=== PATIENT | male | born 1935 | race Caucasian/White ===

== ENCOUNTER 2016-08-28 01:51 | Inpatient (IN) | payer MEDICARE, MEDICAID ==
[2016-08-28] VITALS (7 sets, daily range): BP systolic 119–154; BP diastolic 66–83; PULSE 61–71; TEMP 97.2–98
[~2016-08-28] VITALS: Ht 177.8 cm; Wt 97.7 kg
[~2016-08-28 01:51] MED LIST: ACULAR 10 ML10 ML; ACULAR OPHTHALMI5 ML OP; AMOXICILLIN 50500 MG PO; ANTIVERT 25MG25 MG PO; ANTIVERT PO; ASPIRIN 32325 MG/TAB PO; ASPIRIN E.C. 8181 MG PO; AUGMENTIN 875 M1 TAB PO; AZITHROMYCIN250 MG PO; BELLADONNA ALKALOIDS; BELLADONNA/OPIU1 SU2 RC; BENTYL 20MG20 MG/TAB PO; CARAFATE 1GM1 G PO; CARDENE 20MG CA20 M1 PO; CLEOCIN HCL300 MG PO; CLINDAMYCIN HC150 MG PO; CLINDAMYCIN HC300 MG PO; COMBIVENT INH14.7 GM IH; COZAAR 50MG50 MG/TAB PO; COZAAR100 MG PO; DONNATAL TABLET1 TAB PO; DONNATAL1 CA1 PO; DONNATAL1 CAP PO; FLONASE NASAL S16 GM NS; FLOVENT; FLOVENT 110MCG7.9 GM IH; FLOVENT 220MCG7.9 GM IH; FLOVENT DI100 MCG/Ac IH; FLOVENT0.044 MG/A IH; GI COCKTAIL; HCTZ 25MG TAB25 MG PO; IBU400 MG PO; INDOCIN 25MG CA25 MG PO; INTESTINEX1 CA1 PO; LANOXIN 0.120.125 MG PO; LANOXIN 0.25M0.25 MG PO; LASIX 20MG TABL20 MG; LEVAQUIN 5500 MG/TAB PO; LEVSIN0.125 M1 PO; LINZESS290CAP PO; LISINOPRIL5 MG PO; LOPRESSOR 225 MG/TAB PO; NASONEX SPRAY; NEOMYCIN SULFA500 MG PO; NEURONTIN100 MG/CAP PO; NORCO 325 MG-51 TAB PO; OCUFLOX OPHTH DR5 ML; PLAVIX 75MG TAB75 MG PO; PLAVIX300 MG PO; PRED FORTE 1 ML1 ML OP; PROAIR; PROAIR HFA0.09 MG/AC IH; PROAMATINE10 MG PO; REGLAN 10MG10 MG/TAB PO; SINGULAIR; TEARS NATURALE15 M1 OP; TOPROL XL 50MG50 MG PO; TRAVATAN 2.5 M2.5 M1 OU; TRAVATAN Z 2.52.5 ML OU; TRAVATAN Z 5 ML5 ML OS; TUMS500 MG PO; TYLENOL 650MG650 M2 PO; ULTRAM50 MG PO; VENTOLIN0.09 MG IH; XALATAN; XALATAN EYE DROPS OP; ZANTAC 300300 MG PO; ZOCOR 40MG40 MG PO; [UNRECOGNIZED DRUG - OTHER]
[2016-08-28 02:24] LABS: BASO # 0.1 (0.0-0.2); BASO % 0.7 % (0.0-2.0); EOS # 0.1 (0.0-0.7); EOS % 1.1 % (0-4.0); GRAN % 74.8 % (42.2-75.2); HEMATOCRIT 40.7 % (42.0-52.0); HEMOGLOBIN 14.7 g/dl (13.5-18.0); LYMPH # 1.1 (1.2-3.4); LYMPH % 10.5 % (20.0-51.0); MEAN CELL VOLUME 87 fl (80.0-100.0); MEAN CORPUSCULAR HEMOGLOBIN 32 pg (27.0-31.0); MEAN CORPUSCULAR HGB CONC 36 g/dl (33.0-37.0); MEAN PLATELET VOLUME 8.5 fl (7.4-10.4); MONO # 1.3 (0.1-0.6); MONO % 12.4 % (1.7-9.3); PLATELET COUNT 170 K/mm3 (130-400); RED BLOOD COUNT 4.67 M/mm3 (4.20-5.60); REDCELL DISTRIBUTION WIDTH-CV 12.5 % (11.5-14.5); WHITE BLOOD COUNT 10.6 K/mm3 (4.8-10.8)
[2016-08-28 02:33] LABS: ADJUSTED CALCIUM 9.7 mg/dL (8.4-10.2); ALBUMIN 3.9 gm/dL (3.5-5.0); BILIRUBIN,TOTAL 1.2 mg/dL (0.0-1.0); CALCIUM 9.6 mg/dL (8.4-10.2); CREATININE, serum 0.8 mg/dL (0.66-1.25); POTASSIUM 3.9 mmol/L (3.4-5.0)
[2016-08-28] MEDS ORDERED: ZOFRAN8 MG PO (02:57)
[2016-08-28 03:06] LABS: PH 8 (5-8); SQUAMOUS EPITHELIAL 0-2 /hpf; URINE APPEARANCE Hazy; URINE BACTERIA None Seen /hpf; URINE BILIRUBIN Negative (NEGATIVE); URINE BLOOD Negative (NEGATIVE); URINE COLOR Yellow; URINE GLUCOSE Negative (NEGATIVE); URINE KETONE Negative (NEGATIVE); URINE RBC 0-2 /hpf; URINE UROBILINOGEN Negative (NEGATIVE); URINE WBC 0-2 /hpf
[2016-08-28] MEDS ORDERED: PERCOCET 325 MG1 TA2 PO (04:14)
[2016-08-28] MEDS ORDERED: CLEOCIN HCL300 MG PO (04:14)
[2016-08-28] MEDS ORDERED: LEVAQUIN 750MG750 M1 PO (04:14)
[2016-08-28] MEDS ORDERED: ULTRAM 50MG TAB50 MG PO (04:14)
[2016-08-28] MEDS ORDERED: LASIX 20MG TABL20 MG PO (06:08)
[2016-08-29 07:52] VITALS: BP 133/77; PULSE 60; TEMP 97.8
[2016-08-29 08:11] LABS: CALCIUM 8.2 mg/dL (8.4-10.2); CREATININE, serum 0.86 mg/dL (0.66-1.25)
[2016-08-29 08:15] LABS: BASO # 0.1 (0.0-0.2); BASO % 1.2 % (0.0-2.0); EOS # 0.1 (0.0-0.7); EOS % 2.3 % (0-4.0); GRAN # 4.5 (1.4-6.5); GRAN % 74.2 % (42.2-75.2); HEMATOCRIT 38.8 % (42.0-52.0); HEMOGLOBIN 13.4 g/dl (13.5-18.0); LYMPH # 0.8 (1.2-3.4); LYMPH % 12.4 % (20.0-51.0); MEAN CELL VOLUME 89 fl (80.0-100.0); MEAN CORPUSCULAR HEMOGLOBIN 31 pg (27.0-31.0); MEAN CORPUSCULAR HGB CONC 35 g/dl (33.0-37.0); MEAN PLATELET VOLUME 8.5 fl (7.4-10.4); MONO # 0.6 (0.1-0.6); MONO % 9.4 % (1.7-9.3); RED BLOOD COUNT 4.36 M/mm3 (4.20-5.60); REDCELL DISTRIBUTION WIDTH-CV 12.7 % (11.5-14.5)
[2016-08-29 08:53] LABS: PLATELET COUNT 177 K/mm3 (130-400)
[2016-08-29 11:50] VITALS: BP 114/73; PULSE 67; TEMP 97.9
[2016-08-29 16:02] VITALS: BP 135/70; PULSE 64; TEMP 97.9
[2016-08-30 01:09] VITALS: BP 145/80; PULSE 64; TEMP 97.8
[2016-08-30 04:02] VITALS: BP 159/71; PULSE 70; TEMP 97.7
[2016-08-30 08:10] VITALS: BP 151/94; PULSE 66; TEMP 97
[2016-08-30] MEDS ORDERED: AMOXICILLIN 8751 TAB PO (09:40)
[2016-08-30 11:54] VITALS: BP 151/79; PULSE 47; TEMP 98.4
== END 2016-08-30 15:59 | disposition home or self-care (01) | DRG 392 ==
LOC: COL.ER 01:51 → MEDICAL 04:41
PROVIDERS: Emergency Medicine; Nurse Practitioner Family
DX: K57.32 Diverticulitis of large intestine without perforation or abscess without bleeding (principal); I50.22 Chronic systolic (congestive) heart failure; E87.1 Hypo-osmolality and hyponatremia; I11.0 Hypertensive heart disease with heart failure; I25.10 Atherosclerotic heart disease of native coronary artery without angina pectoris; Z95.1 Presence of aortocoronary bypass graft; Z95.0 Presence of cardiac pacemaker; K58.9 Irritable bowel syndrome, unspecified; J44.9 Chronic obstructive pulmonary disease, unspecified; I48.91 Unspecified atrial fibrillation; Z87.891 Personal history of nicotine dependence; K21.9 Gastro-esophageal reflux disease without esophagitis
CPT/HCPCS: OP; 99223-AI; 99231-AI; 99239; G8987-GO; G8988-GO; J1170; J2405; J2543; J7030; J7050; Q9967

== ENCOUNTER 2016-09-01 12:35 | Inpatient (IN) | payer MEDICARE, MEDICAID ==
[~2016-09-01] VITALS: Ht 175.3 cm; Wt 97.4 kg
[~2016-09-01 12:35] MED LIST changes: +AMOXICILLIN 8751 TAB PO; +LASIX 20MG TABL20 MG PO; +LEVAQUIN 750MG750 M1 PO; +PERCOCET 325 MG1 TA2 PO; +ULTRAM 50MG TAB50 MG PO; +ZOFRAN8 MG PO
[2016-09-01 13:42] LABS: BASO # 0.1 (0.0-0.2); BASO % 0.9 % (0.0-2.0); EOS # 0.1 (0.0-0.7); EOS % 1.3 % (0-4.0); GRAN # 5.6 (1.4-6.5); GRAN % 73.9 % (42.2-75.2); HEMATOCRIT 37.9 % (42.0-52.0); HEMOGLOBIN 13.5 g/dl (13.5-18.0); LYMPH # 1.1 (1.2-3.4); LYMPH % 14.1 % (20.0-51.0); MEAN CELL VOLUME 88 fl (80.0-100.0); MEAN CORPUSCULAR HEMOGLOBIN 31 pg (27.0-31.0); MEAN CORPUSCULAR HGB CONC 36 g/dl (33.0-37.0); MEAN PLATELET VOLUME 8.4 fl (7.4-10.4); MONO # 0.7 (0.1-0.6); PLATELET COUNT 222 K/mm3 (130-400); RED BLOOD COUNT 4.31 M/mm3 (4.20-5.60); REDCELL DISTRIBUTION WIDTH-CV 12.6 % (11.5-14.5); WHITE BLOOD COUNT 7.6 K/mm3 (4.8-10.8)
[2016-09-01] MEDS ORDERED: CLEOCIN HCL300 MG PO (13:50)
[2016-09-01 13:51] LABS: ADJUSTED CALCIUM 9.1 mg/dL (8.4-10.2); ALBUMIN 3.5 gm/dL (3.5-5.0); BILIRUBIN,TOTAL 0.8 mg/dL (0.0-1.0); CALCIUM 8.7 mg/dL (8.4-10.2); CREATININE, serum 1.02 mg/dL (0.66-1.25); POTASSIUM 4.4 mmol/L (3.4-5.0); TOTAL PROTEIN 6.4 gm/dL (6.4-8.2)
[2016-09-01] MEDS ORDERED: LEVAQUIN 750MG750 M1 PO (13:51)
[2016-09-01] MEDS ORDERED: BENTYL 20MG20 MG/TAB PO (13:51)
[2016-09-01 15:29] LABS: PH 8 (5-8); SQUAMOUS EPITHELIAL None Seen /hpf; URINE APPEARANCE Clear; URINE BACTERIA None Seen /hpf; URINE BILIRUBIN Negative (NEGATIVE); URINE BLOOD Negative (NEGATIVE); URINE COLOR Yellow; URINE GLUCOSE Negative (NEGATIVE); URINE KETONE Negative (NEGATIVE); URINE RBC 0-2 /hpf; URINE UROBILINOGEN Negative (NEGATIVE); URINE WBC 0-2 /hpf
[2016-09-01] MEDS ORDERED: LASIX 20MG TABL20 MG PO (15:35)
[2016-09-01 16:10] VITALS: BP 112/71; PULSE 69; TEMP 99.3
[2016-09-01 19:26] VITALS: BP 123/62; PULSE 101; TEMP 98.3
[2016-09-01 20:05] LABS: HEMOGLOBIN 12.5 g/dl (13.5-18.0)
[2016-09-01 20:30] LABS: HEMATOCRIT 35.4 % (42.0-52.0)
[2016-09-02] VITALS (8 sets, daily range): BP systolic 102–162; BP diastolic 49–97; PULSE 59–130; TEMP 97–98.6
[2016-09-02 00:49] LABS: HEMOGLOBIN 12.6 g/dl (13.5-18.0)
[2016-09-02 07:38] LABS: HEMOGLOBIN 12.9 g/dl (13.5-18.0)
[2016-09-02 08:26] LABS: HEMATOCRIT 36.8 % (42.0-52.0)
[2016-09-02 14:27] LABS: HEMATOCRIT 37.6 % (42.0-52.0); HEMOGLOBIN 13.2 g/dl (13.5-18.0)
== END 2016-09-02 18:30 | disposition home or self-care (01) | DRG 379 ==
LOC: COL.ER 12:35 → MEDICAL 14:24
PROVIDERS: Emergency Medicine; Family Medicine; Internal Medicine Gastroenterology
PROC: 0DJD8ZZ Inspection of Lower Intestinal Tract, Via Natural or Artificial Opening Endoscopic (ICD-10-PCS; principal; 2016-09-02 15:15)
DX: K57.31 Diverticulosis of large intestine without perforation or abscess with bleeding (principal); I25.10 Atherosclerotic heart disease of native coronary artery without angina pectoris; J44.9 Chronic obstructive pulmonary disease, unspecified; I48.91 Unspecified atrial fibrillation; K58.9 Irritable bowel syndrome, unspecified; I10 Essential (primary) hypertension; D50.0 Iron deficiency anemia secondary to blood loss (chronic)
CPT/HCPCS: J2250; J2405; J2543; J3010; J7030; J7050

== ENCOUNTER 2016-10-21 15:15 | Observation (INO) | payer MEDICARE, MEDICAID ==
[~2016-10-21] VITALS: Ht 175.3 cm; Wt 95.2 kg
[2016-10-21 15:37] LABS: BASO # 0.1 (0.0-0.2); BASO % 0.9 % (0.0-2.0); EOS # 0.3 (0.0-0.7); EOS % 2.8 % (0-4.0); GRAN % 53.3 % (42.2-75.2); HEMATOCRIT 40.1 % (42.0-52.0); LYMPH # 3.2 (1.2-3.4); LYMPH % 28.5 % (20.0-51.0); MEAN CELL VOLUME 87 fl (80.0-100.0); MEAN CORPUSCULAR HEMOGLOBIN 30 pg (27.0-31.0); MEAN CORPUSCULAR HGB CONC 35 g/dl (33.0-37.0); MEAN PLATELET VOLUME 8.8 fl (7.4-10.4); MONO # 1.6 (0.1-0.6); MONO % 13.9 % (1.7-9.3); PLATELET COUNT 243 K/mm3 (130-400); REDCELL DISTRIBUTION WIDTH-CV 12.9 % (11.5-14.5); WHITE BLOOD COUNT 11.2 K/mm3 (4.8-10.8)
[2016-10-21 16:13] LABS: ALANINE AMINOTRANSFERASE 31 U/L (21-72); ALBUMIN 4.2 gm/dL (3.5-5.0); ALKALINE PHOSPHATASE 66 U/L (50-136); ANION GAP 12 mmol/L (7-16); BILIRUBIN,TOTAL 0.7 mg/dL (0.0-1.0); BLOOD UREA NITROGEN 19 mg/dL (9-20); CALCIUM 9.2 mg/dL (8.4-10.2); CARBON DIOXIDE 24 mmol/L (22-30); CHLORIDE 94 mmol/L (98-107); CREATININE, serum 1.18 mg/dL (0.66-1.25); GLUCOSE 101 mg/dL (74-106); POTASSIUM 3.8 mmol/L (3.4-5.0); SODIUM 130 mmol/L (137-145); TOTAL PROTEIN 7.5 gm/dL (6.4-8.2)
[2016-10-21] MEDS ORDERED: LINZESS145CAP PO (16:26)
[2016-10-21 16:46] LABS: TROPONIN-I < 0.012 ng/mL (0.000-0.034)
[2016-10-21] MEDS ORDERED: ZANTAC 300300 MG PO (17:41)
[2016-10-21] MEDS ORDERED: ASPIRIN 81M81 MG/TA2 PO (17:41)
[2016-10-21 18:25] VITALS: BP 148/71; PULSE 60; TEMP 97.8
[2016-10-21 19:32] VITALS: BP 151/74; PULSE 65; TEMP 97.1
[2016-10-21 21:11] LABS: pH GASTRIC CONTENTS 2
[2016-10-21 22:40] VITALS: BP 144/89; PULSE 56; TEMP 97.8
[2016-10-22 03:14] VITALS: BP 122/63; PULSE 64; TEMP 98.5
[2016-10-22 07:46] VITALS: BP 109/54; PULSE 66; TEMP 99.1
[2016-10-22 10:53] LABS: HEMATOCRIT 34.6 % (42.0-52.0); HEMOGLOBIN 11.9 g/dl (13.5-18.0)
[2016-10-22 12:04] VITALS: BP 113/61; PULSE 59; TEMP 98.9
[2016-10-22 14:37] LABS: PH 7 (5-8); SQUAMOUS EPITHELIAL None Seen /hpf; URINE APPEARANCE Clear; URINE BACTERIA None Seen /hpf; URINE BILIRUBIN Negative (NEGATIVE); URINE BLOOD Negative (NEGATIVE); URINE COLOR Yellow; URINE GLUCOSE 1+ (NEGATIVE); URINE KETONE Negative (NEGATIVE); URINE RBC 0-2 /hpf; URINE UROBILINOGEN Negative (NEGATIVE); URINE WBC 0-2 /hpf
[2016-10-22 15:47] VITALS: BP 126/64; PULSE 114; TEMP 98.5
[2016-10-22 20:29] VITALS: BP 129/72; PULSE 65; TEMP 98.6
[2016-10-22 23:38] VITALS: BP 114/55; PULSE 61; TEMP 98.7
[2016-10-23 04:10] VITALS: BP 138/73; PULSE 68; TEMP 98.1
[2016-10-23 08:31] VITALS: BP 143/80; PULSE 65; TEMP 98.8
[2016-10-23 08:35] LABS: HEMOGLOBIN 12.2 g/dl (13.5-18.0)
[2016-10-23 08:36] LABS: HEMATOCRIT 35.8 % (42.0-52.0)
[2016-10-23 12:49] VITALS: BP 127/80; PULSE 65; TEMP 98.9
[2016-10-23] MEDS ORDERED: ANTIVERT 25MG25 MG PO (14:34)
== END 2016-10-23 15:30 | disposition home or self-care (01) ==
LOC: COL.ER 15:15 → MEDICAL 17:26
PROVIDERS: Emergency Medicine
DX: H81.90 Unspecified disorder of vestibular function, unspecified ear (principal); K58.9 Irritable bowel syndrome, unspecified; I10 Essential (primary) hypertension; I25.10 Atherosclerotic heart disease of native coronary artery without angina pectoris; E86.0 Dehydration; K21.9 Gastro-esophageal reflux disease without esophagitis; I97.620 Postprocedural hemorrhage of a circulatory system organ or structure following other procedure; E78.5 Hyperlipidemia, unspecified; J45.909 Unspecified asthma, uncomplicated; I73.9 Peripheral vascular disease, unspecified; H40.9 Unspecified glaucoma; D64.9 Anemia, unspecified; H35.30 Unspecified macular degeneration; Z95.0 Presence of cardiac pacemaker; Z95.1 Presence of aortocoronary bypass graft; Z95.5 Presence of coronary angioplasty implant and graft
CPT/HCPCS: G0378; G8978-GP; G8979-GP; J1650; J2405; J3360; J3480; J7030

== ENCOUNTER 2017-08-07 00:28 | Emergency (ER) | payer MEDICARE ==
[~2017-08-07] VITALS: Ht 177.8 cm; Wt 95.5 kg
[~2017-08-07 00:28] MED LIST changes: +ASPIRIN 81M81 MG/TA2 PO; +LINZESS145CAP PO
[2017-08-07 00:35] VITALS: TEMP 97.3
[2017-08-07 01:40] VITALS: BP 164/93; PULSE 95
== END 2017-08-07 01:42 | disposition home or self-care (01) ==
LOC: COL.ER 00:28
DX: R51 Headache (principal); I10 Essential (primary) hypertension; I25.10 Atherosclerotic heart disease of native coronary artery without angina pectoris; J44.9 Chronic obstructive pulmonary disease, unspecified; I48.91 Unspecified atrial fibrillation; I50.9 Heart failure, unspecified; Z95.5 Presence of coronary angioplasty implant and graft; Z79.82 Long term (current) use of aspirin

== ENCOUNTER 2017-12-29 11:11 | Observation (INO) | payer MEDICARE, MEDICAID ==
[~2017-12-29] VITALS: Ht 177.8 cm; Wt 95.6 kg
[2017-12-29 12:23] VITALS: BP 139/89; PULSE 62
[2017-12-29 12:35] LABS: BASO # 0.1 (0.0-0.2); BASO % 0.8 % (0.0-2.0); EOS # 0.1 (0.0-0.7); GRAN % 78.6 % (42.2-75.2); HEMATOCRIT 41.5 % (42.0-52.0); HEMOGLOBIN 14.7 g/dl (13.5-18.0); LYMPH % 9.5 % (20.0-51.0); MEAN CELL VOLUME 88 fl (80.0-100.0); MEAN CORPUSCULAR HEMOGLOBIN 31 pg (27.0-31.0); MEAN CORPUSCULAR HGB CONC 35 g/dl (33.0-37.0); MEAN PLATELET VOLUME 8.4 fl (7.4-10.4); MONO # 0.9 (0.1-0.6); MONO % 9.2 % (1.7-9.3); PLATELET COUNT 174 K/mm3 (130-400); RED BLOOD COUNT 4.71 M/mm3 (4.20-5.60); REDCELL DISTRIBUTION WIDTH-CV 13.2 % (11.5-14.5)
[2017-12-29 12:45] LABS: ALANINE AMINOTRANSFERASE 31 U/L (21-72); ALBUMIN 3.9 gm/dL (3.5-5.0); ALKALINE PHOSPHATASE 45 U/L (50-136); ANION GAP 7 mmol/L (7-16); AST,SGOT 19 U/L (15-37); BILIRUBIN,TOTAL 0.7 mg/dL (0.0-1.0); BLOOD UREA NITROGEN 15 mg/dL (9-20); CALCIUM 8.8 mg/dL (8.4-10.2); CARBON DIOXIDE 30 mmol/L (22-30); CREATININE, serum 0.89 mg/dL (0.66-1.25); GLUCOSE 108 mg/dL (74-106); LIPASE 30 U/L (23-300); POTASSIUM 3.7 mmol/L (3.4-5.0); SODIUM 127 mmol/L (137-145); TOTAL PROTEIN 7.1 gm/dL (6.4-8.2)
[2017-12-29 12:48] LABS: CHLORIDE 89 mmol/L (98-107)
[2017-12-29] MEDS ORDERED: LASIX 40MG TABL40 MG PO (12:55)
[2017-12-29 13:00] LABS: TROPONIN-I < 0.012 ng/mL (0.000-0.034)
[2017-12-29 13:53] LABS: COLLECTION METHOD CLEAN CATCH
[2017-12-29 14:02] LABS: MUCOUS Present /lpf; PH 7 (5-8); SQUAMOUS EPITHELIAL 0-2 /hpf; URINE APPEARANCE Clear; URINE BACTERIA None Seen /hpf; URINE BILIRUBIN Negative (NEGATIVE); URINE BLOOD Negative (NEGATIVE); URINE COLOR Yellow; URINE GLUCOSE Negative (NEGATIVE); URINE KETONE Negative (NEGATIVE); URINE LEUKOCYTE ESTERASE Negative (NEGATIVE); URINE NITRATE Negative (NEGATIVE); URINE PROTEIN(semi-quant) Negative (NEGATIVE); URINE RBC 0-2 /hpf; URINE UROBILINOGEN Negative (NEGATIVE)
[2017-12-29 15:37] VITALS: BP 145/86; PULSE 62; TEMP 98.4
[2017-12-29] MEDS ORDERED: COZAAR 50MG50 MG/TAB PO (16:06)
[2017-12-29 19:08] VITALS: BP 156/96; PULSE 79; TEMP 98.7
[2017-12-30 01:31] VITALS: BP 103/49; PULSE 61; TEMP 98.3
[2017-12-30 04:05] VITALS: BP 112/62; PULSE 62; TEMP 98.2
[2017-12-30 07:57] VITALS: BP 138/70; PULSE 63; TEMP 98.5
[2017-12-30 11:52] VITALS: BP 153/78; PULSE 72; TEMP 98
[2017-12-30 16:04] VITALS: BP 132/74; PULSE 62; TEMP 98.2
== END 2017-12-30 14:55 | disposition home or self-care (01) ==
LOC: COL.ER 11:11 → MEDICAL 13:47 → EDBEDREQ 14:08 → MEDICAL 12-30 14:55
PROVIDERS: Emergency Medicine
DX: R55 Syncope and collapse (principal); E86.0 Dehydration; R19.7 Diarrhea, unspecified; I50.9 Heart failure, unspecified; Z95.810 Presence of automatic (implantable) cardiac defibrillator; K21.0 Gastro-esophageal reflux disease with esophagitis; Z88.1 Allergy status to other antibiotic agents; Z88.5 Allergy status to narcotic agent; Z88.6 Allergy status to analgesic agent; Z88.8 Allergy status to other drugs, medicaments and biological substances; Z87.891 Personal history of nicotine dependence; Z82.5 Family history of asthma and other chronic lower respiratory diseases; Z80.9 Family history of malignant neoplasm, unspecified
CPT/HCPCS: G0378; G0379; G8978-GP; G8979-GP; J2405; J7030; Q9967

== ENCOUNTER 2018-01-06 11:19 | Emergency (ER) | payer MEDICARE, MEDICAID ==
[~2018-01-06] VITALS: Ht 177.8 cm; Wt 95.5 kg
[~2018-01-06 11:19] MED LIST changes: +LASIX 40MG TABL40 MG PO
[2018-01-06 11:22] VITALS: TEMP 98.4
[2018-01-06 12:14] LABS: BASO # 0.1 (0.0-0.2); BASO % 1.4 % (0.0-2.0); EOS # 0.1 (0.0-0.7); EOS % 1.5 % (0-4.0); GRAN # 4.7 (1.4-6.5); GRAN % 71.9 % (42.2-75.2); HEMATOCRIT 41.2 % (42.0-52.0); HEMOGLOBIN 14.8 g/dl (13.5-18.0); LYMPH % 14.6 % (20.0-51.0); MEAN CELL VOLUME 86 fl (80.0-100.0); MEAN CORPUSCULAR HEMOGLOBIN 31 pg (27.0-31.0); MEAN CORPUSCULAR HGB CONC 36 g/dl (33.0-37.0); MEAN PLATELET VOLUME 8.1 fl (7.4-10.4); MONO # 0.7 (0.1-0.6); PLATELET COUNT 207 K/mm3 (130-400); RED BLOOD COUNT 4.81 M/mm3 (4.20-5.60); REDCELL DISTRIBUTION WIDTH-CV 13.2 % (11.5-14.5)
[2018-01-06 12:27] LABS: COLLECTION METHOD CLEAN CATCH
[2018-01-06 12:28] LABS: BILIRUBIN,TOTAL 0.7 mg/dL (0.0-1.0); CALCIUM 8.9 mg/dL (8.4-10.2); CREATININE, serum 0.88 mg/dL (0.66-1.25); POTASSIUM 3.9 mmol/L (3.4-5.0); TOTAL PROTEIN 7.3 gm/dL (6.4-8.2)
[2018-01-06 12:32] LABS: PH 7 (5-8); SQUAMOUS EPITHELIAL None Seen /hpf; URINE APPEARANCE Clear; URINE BACTERIA None Seen /hpf; URINE BILIRUBIN Negative (NEGATIVE); URINE BLOOD Negative (NEGATIVE); URINE COLOR Yellow; URINE GLUCOSE Negative (NEGATIVE); URINE KETONE Negative (NEGATIVE); URINE LEUKOCYTE ESTERASE Negative (NEGATIVE); URINE NITRATE Negative (NEGATIVE); URINE PROTEIN(semi-quant) Negative (NEGATIVE); URINE RBC 0-2 /hpf; URINE UROBILINOGEN Negative (NEGATIVE)
[2018-01-06 13:45] VITALS: BP 131/74; PULSE 71
== END 2018-01-06 13:43 | disposition home or self-care (01) ==
LOC: COL.ER 11:19
PROVIDERS: Emergency Medicine
DX: R10.84 Generalized abdominal pain (principal); E87.1 Hypo-osmolality and hyponatremia; I25.10 Atherosclerotic heart disease of native coronary artery without angina pectoris; I50.9 Heart failure, unspecified; Z95.5 Presence of coronary angioplasty implant and graft; Z90.49 Acquired absence of other specified parts of digestive tract; Z98.890 Other specified postprocedural states; Z79.51 Long term (current) use of inhaled steroids
CPT/HCPCS: J2405; J2550; J7040; Q9967

== ENCOUNTER 2018-05-25 15:33 | Observation (INO) | payer MEDICARE, MEDICAID ==
[~2018-05-25] VITALS: Ht 177.8 cm; Wt 95.3 kg
[~2018-05-25 15:33] MED LIST changes: -LINZESS145CAP PO
[2018-05-25 16:55] LABS: ARTERIAL BLD GAS O2 SATURATION 96.2 % (92-100); ARTERIAL BLD GAS TCO2 CT 22.1; ARTERIAL BLOOD GAS HCO3 21.2 meq/L (22-26); ARTERIAL BLOOD GAS PCO2 29.2 mmHg (35-45); ARTERIAL BLOOD GAS PO2 86.7 mmHg (80-100); ARTERIAL BLOOD GAS pH 7.48 (7.35-7.45)
--- NOTE | 2018-05-25 17:00 | NUR ---
PT arrived to room, oriented and settled. Lungs are coarse and wheezey throughout but oxygenation 98% on RA. Vitals WNL. Pt afebrile. Standby to bathroom, he voided clear yellow urine into urinal. INT started to RFA with site free of redness, swelling. Call lgiht in reach, family bringing some home meds, no further needs
[2018-05-25 17:01] LABS: HEMATOCRIT 40.5 % (42.0-52.0); HEMOGLOBIN 13.9 g/dl (13.5-18.0); MEAN CELL VOLUME 90 fl (80.0-100.0); MEAN CORPUSCULAR HEMOGLOBIN 31 pg (27.0-31.0); MEAN CORPUSCULAR HGB CONC 34 g/dl (33.0-37.0); MEAN PLATELET VOLUME 8.4 fl (7.4-10.4); PLATELET COUNT 202 K/mm3 (130-400); RED BLOOD COUNT 4.49 M/mm3 (4.20-5.60); REDCELL DISTRIBUTION WIDTH-CV 13.8 % (11.5-14.5)
[2018-05-25] MEDS ORDERED: KAPSPARGO SPRIN50 MG PO (17:04)
[2018-05-25] MEDS ORDERED: KAPSPARGO SPRIN25 MG PO (17:04)
[2018-05-25] MEDS ORDERED: B-12 500 MCG (17:09)
[2018-05-25] MEDS ORDERED: PROBIOTICA100 Milli1 PO (17:09)
[2018-05-25 17:12] LABS: ALBUMIN 3.7 gm/dL (3.5-5.0); BILIRUBIN,TOTAL 0.5 mg/dL (0.0-1.0); CALCIUM 8.6 mg/dL (8.4-10.2); CREATININE, serum 0.96 mg/dL (0.66-1.25); POTASSIUM 4.3 mmol/L (3.4-5.0); TOTAL PROTEIN 6.7 gm/dL (6.4-8.2)
[2018-05-25 17:49] LABS: COLLECTION METHOD CLEAN CATCH
[2018-05-25 17:51] LABS: ANISOCYTOSIS 1+; BAND 6 % (0-10); EOSINOPHIL 4 % (0-4); LYMPHOCYTE 15 % (20.0-51.0); NEUTROPHILS 66 % (42.0-75.2); PLATELET ESTIMATE NORMAL (NORMAL)
[2018-05-25 18:08] LABS: AMORPHOUS CRYSTAL Present /uL; PH 7 (5-8); SQUAMOUS EPITHELIAL 0-2 /hpf; URINE APPEARANCE Hazy; URINE BACTERIA None Seen /hpf; URINE BILIRUBIN Negative (NEGATIVE); URINE BLOOD Negative (NEGATIVE); URINE COLOR Yellow; URINE GLUCOSE Negative (NEGATIVE); URINE KETONE Negative (NEGATIVE); URINE LEUKOCYTE ESTERASE Negative (NEGATIVE); URINE NITRATE Negative (NEGATIVE); URINE PROTEIN(semi-quant) Negative (NEGATIVE); URINE RBC 0-2 /hpf; URINE UROBILINOGEN Negative (NEGATIVE); URINE WBC 0-2 /hpf
--- NOTE | 2018-05-25 19:46 | NUR ---
Report given to Russ LISA, pt taken downstairs for scan at this time, denies needs
[2018-05-25] MEDS ORDERED: COSOPT 2%-0.5%10 ML OD (20:01)
[2018-05-25] MEDS ORDERED: ALPHAGAN P 15 M15 ML OU (20:01)
[2018-05-25 21:18] VITALS: BP 147/94; PULSE 71; TEMP 98
--- NOTE | 2018-05-25 23:28 | NUR ---
Received new orders for Duoneb and confirmed other RT breathing treatment in place with Dr. Delgado at approximate 2315 via phone TORB. YAHIRA
[2018-05-25 23:54] VITALS: BP 122/73; PULSE 65; TEMP 98.4
--- NOTE | 2018-05-26 00:15 | NUR ---
Completed assessment and medication administration; PT tolerated all cares and medications well; PT tolerating NEB treatments well via RT; No VTE order in place at this time; PT moved from RM 359 to 358 d/t call light concerns; A&Ox3, BS active x4, lungs with wheezing throughout; PT denies further needs at time of exit; Placed in a comfortable position in bed; Call light placed within reach; Will continue to monitor. CDA
--- NOTE | 2018-05-26 02:25 | NUR ---
PT RESTING IN BED COMFORTABLY WITH NO NOTED RESPIRATORY DISTRESS AT THIS TIME.
--- NOTE | 2018-05-26 03:07 | NUR ---
PT resting well in supine position in bed; PT continued to SOA with wheezing; New order requested and received from Dr. Delgado for Duo-Neb PRN and addtions NEB BID with RT; PT able to rest in bed after additional treatment; No further needs at time of exit; call light placed within reach; Will continue to monitor. CDA
--- NOTE | 2018-05-26 03:25 | NUR ---
PT CONTINUES TO SLEEP COMFORTABLY AT THIS TIME.
[2018-05-26 04:19] VITALS: BP 140/82; PULSE 59; TEMP 98.2
--- NOTE | 2018-05-26 07:00 | NUR ---
Pt in bed resting. complaning of abd pain. abd distended. No BM for 2 days. Pt requested milk of mag to help with stomach problems.
--- NOTE | 2018-05-26 07:11 | NUR ---
Report given to SLOAN Black. CDA
--- NOTE | 2018-05-26 08:15 | NUR ---
Pt complaing of nausea. I gave sprite and crackers. Nausea subsided.
[2018-05-26 08:34] VITALS: BP 148/86; PULSE 78; TEMP 98.2
--- NOTE | 2018-05-26 08:40 | NUR ---
Assessment complete. Pt sitting up in bed, A&O x 4. Pt reported upset stomach to student nurse and PRN MOM administered per orders with clear soda and crackers. Pt reports feeling a little better at this time, wants to see if it will pass without medications. No further needs reported. Call light in reach.
--- NOTE | 2018-05-26 11:00 | NUR ---
Assessment unchanged pt resting in bedno bowel movement at this time. Pt reports discomfort of abdomenr/t hx irritable bowel syndrome. Pt also concerned about missing glaucoma medication. Isssue reprted to nurse.
[2018-05-26 11:03] VITALS: BP 144/89; PULSE 74; TEMP 98.1
--- NOTE | 2018-05-26 14:52 | NUR ---
SW met with patient to discuss discharge planning. Patient lives in [place] with his Tiffani and son. Patient does not get home health but his gets services from [facility] as well as some provided by Medicaid. Patients PCP is dr blake and she obtains her medications from [facility]. SW will continue to follow for discharge needs. SW met with patient and NCM to present Singh form. Patient did not want to sign and asked that we call his . NCM and SW talked with and obtained verbal consent. Singh placed on chart and copy provided to patient.
[2018-05-26 15:46] VITALS: BP 143/82; PULSE 77; TEMP 98.3
--- NOTE | 2018-05-26 18:15 | NUR ---
Sched abx administered per orders. Pt sitting up in bed awaiting dinner, reports having small BM earlier that provided a small amount of relief, states "I need about 3 more of those." No further needs reported. Call light in reach.
[2018-05-26 20:05] VITALS: BP 135/80; PULSE 68; TEMP 98.7
--- NOTE | 2018-05-26 21:38 | NUR ---
PT REFUSED DUE TO NAUSEA AND VOMITING
[2018-05-26 22:38] VITALS: BP 129/59; PULSE 69; TEMP 97.5
[2018-05-27 05:28] VITALS: BP 137/79; PULSE 76; TEMP 98.6
--- NOTE | 2018-05-27 07:15 | NUR ---
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 Pt sleeping well. RT in at 7:15. RT administerd breathing treatment. Pt had productive cough after nebulizer treatment. Personal care accomplished.
--- NOTE | 2018-05-27 07:15 | NUR ---
pt resting in bed. RT here. Breath sounds after tx expiratory wheezes peripheral feilds. Producting cough light yellow. No SOB noted. INT rt forearm intact without redness. Voices no acute concers this am. Call light in reach.
[2018-05-27 08:32] VITALS: BP 121/87; PULSE 77; TEMP 98.3
--- NOTE | 2018-05-27 10:00 | NUR ---
Respritory viral panel collected by primary nurse.
--- NOTE | 2018-05-27 10:16 | NUR ---
Pt is awake and A/Ox4, sitting up in bed. He denies pain at this time. Pt does report non-productive cough. Lungs are coarse bilaterally, exp wheeze noted. Pt remains on room air, resp. are even and unlabored at rest. Saline lock to right FA is free of complicatons. Pt updated on plan of care, expressed understanding. Sruthi [facility] student assisting with AM cares.
[2018-05-27 14:04] VITALS: BP 101/71; PULSE 68; TEMP 98
--- NOTE | 2018-05-27 14:39 | NUR ---
Pt is sitting up in bed. He continues on room air. He denies any needs at this time.
[2018-05-27 15:35] VITALS: BP 131/80; PULSE 602; PULSE 62; TEMP 98.3
--- NOTE | 2018-05-27 17:45 | NUR ---
Pt has had an overall uneventful shift. He remains on room air. Continues to deny further needs.
--- NOTE | 2018-05-27 18:44 | NUR ---
IV to right FA found to be infiltrated. Dr. Delgado notified and order to keep IV out and change IV medications to PO obtained.
[2018-05-27 21:37] VITALS: BP 137/79; PULSE 75; TEMP 98.9
[2018-05-28 00:25] VITALS: BP 127/80; PULSE 73; TEMP 97.9
--- NOTE | 2018-05-28 00:37 | NUR ---
Completed assessment and medication administration; PT tolerated all cares well. PT denied pain or discomfort at time of assessment; PT A&Ox3, VS active x4, I&E wheezing bilaterally with RT for NEB treatment; PT assisted to a comfortable position in bed with call light in reach; Anticipated D/C home tomorrow with continued PO ABX therapy; Will continue to monitor. CDA
--- NOTE | 2018-05-28 12:00 | NUR ---
Initial visit; Patient thanked Bar Useful Or Busser for looking in on him though declined spiritual Care.
--- NOTE | 2018-05-29 06:50 | NUR ---
PT REFUSED SVN.
--- NOTE | 2018-05-29 07:30 | NUR ---
Pt sitting up in bed complaining of abdomen pain. Pt given PRN bentyl. Morning assessment completed, medications adminstered per emar. Pt denies shortness of breath. Waiting on consultation from Dr. Moncada pt verbalizes understanding denies any needs at this time. Call light in reach.
[2018-05-29 08:00] VITALS: BP 128/75; PULSE 70; TEMP 98
--- NOTE | 2018-05-29 11:30 | NUR ---
Pt sitting up in bed complaining of abdomen pain. Pt requested carafate and bentyl. Administered medication to pt. Pt denies shortness of breath. Denies any needs at this time. Call light in reach.
[2018-05-29 12:00] VITALS: BP 151/78; PULSE 72; TEMP 98.1
[2018-05-29 12:29] LABS: BASO # 0.1 (0.0-0.2); BASO % 0.9 % (0.0-2.0); EOS # 0.2 (0.0-0.7); EOS % 2.5 % (0-4.0); GRAN # 5.8 (1.4-6.5); GRAN % 71.2 % (42.2-75.2); HEMOGLOBIN 14.4 g/dl (13.5-18.0); LYMPH % 12.6 % (20.0-51.0); MEAN CELL VOLUME 88 fl (80.0-100.0); MEAN CORPUSCULAR HEMOGLOBIN 32 pg (27.0-31.0); MEAN CORPUSCULAR HGB CONC 36 g/dl (33.0-37.0); MONO % 12.1 % (1.7-9.3); PLATELET COUNT 195 K/mm3 (130-400); RED BLOOD COUNT 4.55 M/mm3 (4.20-5.60); REDCELL DISTRIBUTION WIDTH-CV 13.3 % (11.5-14.5)
[2018-05-29 17:09] VITALS: BP 134/79; PULSE 128; TEMP 98.3
[2018-05-29] MEDS ORDERED: RT ADVAIR HFA 2312 G IH (17:29)
[2018-05-29] MEDS ORDERED: PROAIR HFA0.09 MG/AC IH (17:29)
[2018-05-29] MEDS ORDERED: LEVAQUIN 5500 MG/TA1 PO (17:45)
[2018-05-29] MEDS ORDERED: SPIRIVA RE2.5 MCG/Ac IH (17:58)
--- NOTE | 2018-05-29 18:35 | NUR ---
Pt discharged home at this time. All discharge instructions reviewed. Denies any needs or questions. All scripts given to spouse. Pt took all belongings. [facility] staff escorted pt out.
== END 2018-05-29 18:37 | disposition home or self-care (01) ==
LOC: MEDICAL 15:33
PROVIDERS: Internal Medicine Pulmonary Disease; ADMIT Emergency Medicine
DX: J44.1 Chronic obstructive pulmonary disease with (acute) exacerbation (principal); I73.9 Peripheral vascular disease, unspecified; K21.9 Gastro-esophageal reflux disease without esophagitis; I25.10 Atherosclerotic heart disease of native coronary artery without angina pectoris; I11.0 Hypertensive heart disease with heart failure; I50.22 Chronic systolic (congestive) heart failure; D50.0 Iron deficiency anemia secondary to blood loss (chronic); Z95.1 Presence of aortocoronary bypass graft; Z87.891 Personal history of nicotine dependence; Z80.9 Family history of malignant neoplasm, unspecified; Z82.5 Family history of asthma and other chronic lower respiratory diseases; Z82.49 Family history of ischemic heart disease and other diseases of the circulatory system; Z88.8 Allergy status to other drugs, medicaments and biological substances; Z88.1 Allergy status to other antibiotic agents; Z88.6 Allergy status to analgesic agent; Z88.5 Allergy status to narcotic agent; J30.1 Allergic rhinitis due to pollen; Z91.018 Allergy to other foods; K58.9 Irritable bowel syndrome, unspecified
CPT/HCPCS: A4614; G0378; G0379; J1956; Q9967

== ENCOUNTER 2018-06-05 04:45 | Emergency (ER) | payer MEDICARE, MEDICAID ==
[~2018-06-05] VITALS: Ht 177.8 cm; Wt 95.5 kg
[~2018-06-05 04:45] MED LIST changes: +ALPHAGAN P 15 M15 ML OU; +B-12 500 MCG; +COSOPT 2%-0.5%10 ML OD; +KAPSPARGO SPRIN25 MG PO; +KAPSPARGO SPRIN50 MG PO; +LEVAQUIN 5500 MG/TA1 PO; +PROBIOTICA100 Milli1 PO; +RT ADVAIR HFA 2312 G IH; +SPIRIVA RE2.5 MCG/Ac IH
[2018-06-05 05:31] VITALS: TEMP 97.1
[2018-06-05] MEDS ORDERED: COLACE 100100 MG/CAP PO (05:35)
[2018-06-05] MEDS ORDERED: LASIX 40MG TABL40 MG PO (05:36)
[2018-06-05] MEDS ORDERED: PROBIOTIC ACID1 EAC3 PO (05:38)
[2018-06-05] MEDS ORDERED: TOPROL XL 50MG50 MG PO (05:39)
[2018-06-05] MEDS ORDERED: OCUVITE1 TA1 PO (05:39)
[2018-06-05 06:20] LABS: BASO # 0.1 (0.0-0.2); BASO % 0.9 % (0.0-2.0); EOS # 0.1 (0.0-0.7); EOS % 2.1 % (0-4.0); GRAN # 3.6 (1.4-6.5); HEMOGLOBIN 14.5 g/dl (13.5-18.0); LYMPH # 0.8 (1.2-3.4); LYMPH % 15.2 % (20.0-51.0); MEAN CELL VOLUME 89 fl (80.0-100.0); MEAN CORPUSCULAR HEMOGLOBIN 31 pg (27.0-31.0); MEAN CORPUSCULAR HGB CONC 35 g/dl (33.0-37.0); MEAN PLATELET VOLUME 8.7 fl (7.4-10.4); MONO # 0.6 (0.1-0.6); MONO % 11.9 % (1.7-9.3); PLATELET COUNT 154 K/mm3 (130-400); RED BLOOD COUNT 4.63 M/mm3 (4.20-5.60); REDCELL DISTRIBUTION WIDTH-CV 13.5 % (11.5-14.5)
[2018-06-05 06:22] LABS: ALANINE AMINOTRANSFERASE 25 U/L (21-72); ALBUMIN 3.6 gm/dL (3.5-5.0); ALKALINE PHOSPHATASE 54 U/L (50-136); ANION GAP 7 mmol/L (7-16); AST,SGOT 20 U/L (15-37); BILIRUBIN,TOTAL 0.7 mg/dL (0.0-1.0); BLOOD UREA NITROGEN 18 mg/dL (9-20); CALCIUM 9.1 mg/dL (8.4-10.2); CARBON DIOXIDE 32 mmol/L (22-30); CHLORIDE 92 mmol/L (98-107); CREATININE, serum 0.93 mg/dL (0.66-1.25); GLUCOSE 102 mg/dL (74-106); POTASSIUM 3.8 mmol/L (3.4-5.0); SODIUM 132 mmol/L (137-145); TOTAL PROTEIN 6.6 gm/dL (6.4-8.2)
[2018-06-05 06:25] LABS: INR 1.1 (0.8-3.0); PROTHROMBIN TIME 12.2 SECONDS (9.7-12.8)
[2018-06-05 06:28] LABS: PARTIAL THROMBOPLASTIN TIME 21.8 SECONDS (26.0-37.0)
[2018-06-05 06:29] LABS: C-REACTIVE PROTEIN < 0.5 mg/dL (0.0-0.9)
[2018-06-05 08:16] VITALS: BP 144/82; PULSE 71
== END 2018-06-05 08:05 | disposition home or self-care (01) ==
LOC: COL.ER 04:45
PROVIDERS: Emergency Medicine
DX: I80.3 Phlebitis and thrombophlebitis of lower extremities, unspecified (principal); J45.909 Unspecified asthma, uncomplicated; I10 Essential (primary) hypertension; I25.10 Atherosclerotic heart disease of native coronary artery without angina pectoris; I48.91 Unspecified atrial fibrillation; Z79.51 Long term (current) use of inhaled steroids

== ENCOUNTER 2019-05-03 18:05 | Emergency (ER) | payer MEDICARE, MEDICAID ==
[~2019-05-03] VITALS: Ht 177.8 cm; Wt 100.0 kg
[~2019-05-03 18:05] MED LIST changes: +COLACE 100100 MG/CAP PO; +OCUVITE1 TA1 PO; +PROBIOTIC ACID1 EAC3 PO
[2019-05-03 18:23] VITALS: TEMP 98.3
[2019-05-03] MEDS ORDERED: K-DUR20 MEQ PO (19:11)
[2019-05-03] MEDS ORDERED: LASIX 80MG TABL80 MG PO (19:12)
[2019-05-03] MEDS ORDERED: LASIX 40MG TABL40 MG PO (19:13)
[2019-05-03 19:22] LABS: BASO # 0.1 (0.0-0.2); BASO % 1.6 % (0.0-2.0); EOS # 0.3 (0.0-0.7); EOS % 4.7 % (0-4.0); GRAN # 3.6 (1.4-6.5); GRAN % 57.9 % (42.2-75.2); HEMATOCRIT 42.8 % (42.0-52.0); HEMOGLOBIN 14.5 g/dl (13.5-18.0); LYMPH # 1.1 (1.2-3.4); LYMPH % 17.2 % (20.0-51.0); MEAN CELL VOLUME 91 fl (80.0-100.0); MEAN CORPUSCULAR HEMOGLOBIN 31 pg (27.0-31.0); MEAN CORPUSCULAR HGB CONC 34 g/dl (33.0-37.0); MEAN PLATELET VOLUME 8.8 fl (7.4-10.4); MONO # 1.1 (0.1-0.6); PLATELET COUNT 187 K/mm3 (130-400); RED BLOOD COUNT 4.71 M/mm3 (4.20-5.60); REDCELL DISTRIBUTION WIDTH-CV 13.3 % (11.5-14.5)
[2019-05-03 19:53] LABS: ALBUMIN 4.2 gm/dL (3.5-5.0); BILIRUBIN,TOTAL 0.6 mg/dL (0.0-1.0); C-REACTIVE PROTEIN 0.9 mg/dL (0.0-0.9); CALCIUM 8.8 mg/dL (8.4-10.2); CREATININE, serum 1.17 (0.66-1.25); POTASSIUM 3.9 mmol/L (3.4-5.0); TOTAL PROTEIN 7.7 gm/dL (6.4-8.2)
[2019-05-03 20:23] LABS: COLLECTION METHOD CLEAN CATCH
[2019-05-03 20:29] LABS: MUCOUS Present /lpf; PH 6 (5-8); SQUAMOUS EPITHELIAL None Seen /hpf; URINE APPEARANCE Clear; URINE BACTERIA None Seen /hpf; URINE BILIRUBIN Negative (NEGATIVE); URINE BLOOD Negative (NEGATIVE); URINE COLOR Yellow; URINE GLUCOSE Negative (NEGATIVE); URINE KETONE Negative (NEGATIVE); URINE LEUKOCYTE ESTERASE Negative (NEGATIVE); URINE NITRATE Negative (NEGATIVE); URINE PROTEIN(semi-quant) Negative (NEGATIVE); URINE RBC 0-2 /hpf; URINE UROBILINOGEN Negative (NEGATIVE)
[2019-05-03 20:51] VITALS: BP 120/76; PULSE 60
== END 2019-05-03 20:51 | disposition home or self-care (01) ==
LOC: COL.ER 18:05
PROVIDERS: Family Medicine
DX: R53.1 Weakness (principal); R73.09 Other abnormal glucose; J44.9 Chronic obstructive pulmonary disease, unspecified; I11.0 Hypertensive heart disease with heart failure; I50.9 Heart failure, unspecified; Z79.51 Long term (current) use of inhaled steroids

== ENCOUNTER 2019-08-07 21:44 | Emergency (ER) | payer MEDICARE, MEDICAID ==
[~2019-08-07] VITALS: Ht 177.8 cm; Wt 100.0 kg
[~2019-08-07 21:44] MED LIST changes: +K-DUR20 MEQ PO; +LASIX 80MG TABL80 MG PO
[2019-08-07 22:02] VITALS: BP 143/92; TEMP 98.5
[2019-08-07] MEDS ORDERED: VALTREX1 GM PO (22:54)
[2019-08-07 23:14] VITALS: PULSE 65
== END 2019-08-07 23:14 | disposition home or self-care (01) ==
LOC: COL.ER 21:44
DX: B02.9 Zoster without complications (principal); Z79.51 Long term (current) use of inhaled steroids

== ENCOUNTER 2019-10-21 14:15 | Emergency (ER) | payer MEDICARE, MEDICAID ==
[~2019-10-21] VITALS: Ht 177.8 cm; Wt 100.0 kg
[~2019-10-21 14:15] MED LIST changes: -B-12 500 MCG; +B-12 500 MCG PO; +VALTREX1 GM PO
[2019-10-21 14:18] VITALS: TEMP 98.4
[2019-10-21 14:55] LABS: COLLECTION METHOD CLEAN CATCH
[2019-10-21 15:02] LABS: BASO # 0.1 (0.0-0.2); BASO % 1.1 % (0.0-2.0); EOS # 0.2 (0.0-0.7); GRAN # 5.5 (1.4-6.5); GRAN % 72.1 % (42.2-75.2); HEMOGLOBIN 12.8 g/dl (13.5-18.0); LYMPH # 1.1 (1.2-3.4); LYMPH % 14.3 % (20.0-51.0); MEAN CELL VOLUME 87 fl (80.0-100.0); MEAN CORPUSCULAR HEMOGLOBIN 31 pg (27.0-31.0); MEAN CORPUSCULAR HGB CONC 35 g/dl (33.0-37.0); MEAN PLATELET VOLUME 8.2 fl (7.4-10.4); MONO # 0.7 (0.1-0.6); MONO % 9.8 % (1.7-9.3); PLATELET COUNT 245 K/mm3 (130-400); REDCELL DISTRIBUTION WIDTH-CV 13.7 % (11.5-14.5)
[2019-10-21 15:13] LABS: ALBUMIN 3.7 gm/dL (3.5-5.0); BILIRUBIN,TOTAL 0.6 mg/dL (0.0-1.0); CALCIUM 8.2 mg/dL (8.4-10.2); CREATININE, serum 1.32 (0.66-1.25); POTASSIUM 4.4 mmol/L (3.4-5.0); TOTAL PROTEIN 6.7 gm/dL (6.4-8.2)
[2019-10-21 15:22] LABS: AMORPHOUS CRYSTAL Present /uL; PH 7 (5-8); SQUAMOUS EPITHELIAL None Seen /hpf; URINE APPEARANCE Cloudy; URINE BACTERIA None Seen /hpf; URINE BILIRUBIN Negative (NEGATIVE); URINE BLOOD Negative (NEGATIVE); URINE COLOR Yellow; URINE GLUCOSE Negative (NEGATIVE); URINE KETONE Negative (NEGATIVE); URINE LEUKOCYTE ESTERASE Negative (NEGATIVE); URINE NITRATE Negative (NEGATIVE); URINE PROTEIN(semi-quant) Negative (NEGATIVE); URINE RBC 0-2 /hpf; URINE UROBILINOGEN Negative (NEGATIVE)
[2019-10-21 15:28] LABS: HEMATOCRIT 36.6 % (42.0-52.0)
[2019-10-21] MEDS ORDERED: FLOMAX 0.40.4 MG/CAP PO (17:07)
[2019-10-21 17:39] VITALS: BP 124/79; PULSE 60
== END 2019-10-21 17:55 | disposition home or self-care (01) ==
LOC: COL.ER 14:15
PROVIDERS: Emergency Medicine
DX: N40.1 Benign prostatic hyperplasia with lower urinary tract symptoms (principal); R33.8 Other retention of urine; E78.5 Hyperlipidemia, unspecified; I10 Essential (primary) hypertension; I25.10 Atherosclerotic heart disease of native coronary artery without angina pectoris; I25.2 Old myocardial infarction; Z95.5 Presence of coronary angioplasty implant and graft; Z90.49 Acquired absence of other specified parts of digestive tract; Z79.84 Long term (current) use of oral hypoglycemic drugs; Z79.51 Long term (current) use of inhaled steroids
CPT/HCPCS: J2405; J3010; J7030; Q9967

== ENCOUNTER 2019-10-23 06:11 | Emergency (ER) | payer MEDICARE, MEDICAID ==
[~2019-10-23] VITALS: Ht 177.8 cm; Wt 100.0 kg
[~2019-10-23 06:11] MED LIST changes: +FLOMAX 0.40.4 MG/CAP PO
[2019-10-23 06:22] VITALS: BP 120/84; PULSE 66; TEMP 97.9
[2019-10-23] MEDS ORDERED: PROVENTIL0.09 MG/A1 IH (06:48)
[2019-10-23] MEDS ORDERED: FLOMAX 0.40.4 MG/CAP PO (06:49)
[2019-10-23] MEDS ORDERED: RT ADVAIR HFA 2312 G IH (06:55)
[2019-10-23 07:20] LABS: COLLECTION METHOD CLEAN CATCH
[2019-10-23 07:25] LABS: PH 7 (5-8); SQUAMOUS EPITHELIAL None Seen /hpf; URINE APPEARANCE Clear; URINE BACTERIA None Seen /hpf; URINE BILIRUBIN Negative (NEGATIVE); URINE BLOOD 1+ (NEGATIVE); URINE COLOR Yellow; URINE GLUCOSE Negative (NEGATIVE); URINE KETONE Negative (NEGATIVE); URINE LEUKOCYTE ESTERASE Negative (NEGATIVE); URINE NITRATE Negative (NEGATIVE); URINE PROTEIN(semi-quant) Negative (NEGATIVE); URINE RBC 20-50 /hpf; URINE UROBILINOGEN Negative (NEGATIVE)
[2019-10-23] MEDS ORDERED: BACTRIM DS 8001 TAB PO (08:03)
[2019-10-23] MEDS ORDERED: FLAGYL500 MG PO (08:04)
[2019-10-23 08:23] LABS: ALBUMIN 3.5 gm/dL (3.5-5.0); BILIRUBIN,TOTAL 0.4 mg/dL (0.0-1.0); C-REACTIVE PROTEIN 0.8 mg/dL (0.0-0.9); CALCIUM 8.3 mg/dL (8.4-10.2); CREATININE, serum 1.23 (0.66-1.25); POTASSIUM 4.5 mmol/L (3.4-5.0); TOTAL PROTEIN 6.5 gm/dL (6.4-8.2)
[2019-10-23 08:32] LABS: BASO # 0.1 (0.0-0.2); BASO % 0.8 % (0.0-2.0); EOS # 0.1 (0.0-0.7); EOS % 1.9 % (0-4.0); GRAN # 5.6 (1.4-6.5); GRAN % 74.4 % (42.2-75.2); HEMOGLOBIN 12.7 g/dl (13.5-18.0); LYMPH # 0.9 (1.2-3.4); MEAN CELL VOLUME 87 fl (80.0-100.0); MEAN CORPUSCULAR HEMOGLOBIN 31 pg (27.0-31.0); MEAN CORPUSCULAR HGB CONC 36 g/dl (33.0-37.0); MEAN PLATELET VOLUME 8.4 fl (7.4-10.4); MONO # 0.7 (0.1-0.6); MONO % 9.8 % (1.7-9.3); PLATELET COUNT 245 K/mm3 (130-400); RED BLOOD COUNT 4.05 M/mm3 (4.20-5.60); REDCELL DISTRIBUTION WIDTH-CV 13.9 % (11.5-14.5)
[2019-10-23 08:33] LABS: HEMATOCRIT 35.4 % (42.0-52.0)
[2019-10-23] MEDS ORDERED: PYRIDIUM200 M1 PO ×2 (21:27)
[2019-10-23] MEDS ORDERED: ZOFRAN ODT4 MG PO (22:32)
== END 2019-10-23 09:45 | disposition home or self-care (01) ==
LOC: COL.ER 06:11
PROVIDERS: Emergency Medicine
DX: R33.9 Retention of urine, unspecified (principal); I10 Essential (primary) hypertension; I25.2 Old myocardial infarction; Z90.49 Acquired absence of other specified parts of digestive tract; Z95.5 Presence of coronary angioplasty implant and graft; Z79.51 Long term (current) use of inhaled steroids
CPT/HCPCS: J3010

== ENCOUNTER 2019-10-23 18:51 | Emergency (ER) | payer MEDICARE, MEDICAID ==
[~2019-10-23] VITALS: Ht 177.8 cm; Wt 104.5 kg
[~2019-10-23 18:51] MED LIST changes: +BACTRIM DS 8001 TAB PO; +FLAGYL500 MG PO; +PROVENTIL0.09 MG/A1 IH
[2019-10-23] MEDS ORDERED: PYRIDIUM200 M1 PO ×2 (21:27)
[2019-10-23] MEDS ORDERED: ZOFRAN ODT4 MG PO (22:32)
[2019-10-23 22:52] VITALS: BP 126/64; PULSE 78; TEMP 98.6
== END 2019-10-23 23:15 | disposition home or self-care (01) ==
LOC: COL.ER 18:51
DX: N32.89 Other specified disorders of bladder (principal)
CPT/HCPCS: J1170; J2405; J3010; J7030; Q9967

== ENCOUNTER 2019-11-05 15:08 | Emergency (ER) | payer MEDICARE, MEDICAID ==
[~2019-11-05] VITALS: Ht 177.8 cm; Wt 100.0 kg
[~2019-11-05 15:08] MED LIST changes: +PYRIDIUM200 M1 PO; +ZOFRAN ODT4 MG PO
[2019-11-05 15:19] VITALS: TEMP 98
[2019-11-05] MEDS ORDERED: LEVAQUIN 5500 MG/TA1 PO (15:45)
[2019-11-05] MEDS ORDERED: MYRBETR25MG PO (15:46)
[2019-11-05] MEDS ORDERED: BENTYL 20MG20 MG/TAB PO (15:47)
[2019-11-05 15:54] LABS: COLLECTION METHOD CATHETER
[2019-11-05 16:05] LABS: BASO # 0.1 (0.0-0.2); BASO % 0.8 % (0.0-2.0); EOS # 0.1 (0.0-0.7); GRAN # 6.8 (1.4-6.5); GRAN % 75.3 % (42.2-75.2); HEMOGLOBIN 12.9 g/dl (13.5-18.0); LYMPH % 11.4 % (20.0-51.0); MEAN CELL VOLUME 89 fl (80.0-100.0); MEAN CORPUSCULAR HEMOGLOBIN 30 pg (27.0-31.0); MEAN CORPUSCULAR HGB CONC 34 g/dl (33.0-37.0); MEAN PLATELET VOLUME 8.2 fl (7.4-10.4); MONO % 11.2 % (1.7-9.3); PLATELET COUNT 245 K/mm3 (130-400); RED BLOOD COUNT 4.25 M/mm3 (4.20-5.60); REDCELL DISTRIBUTION WIDTH-CV 14.2 % (11.5-14.5)
[2019-11-05 16:11] LABS: PH 9 (5-8); SQUAMOUS EPITHELIAL 0-2 /hpf; URINE APPEARANCE Cloudy; URINE BACTERIA Rare /hpf; URINE BILIRUBIN Negative (NEGATIVE); URINE BLOOD 2+ (NEGATIVE); URINE COLOR Yellow; URINE GLUCOSE Negative (NEGATIVE); URINE KETONE Negative (NEGATIVE); URINE LEUKOCYTE ESTERASE Trace (NEGATIVE); URINE NITRATE Negative (NEGATIVE); URINE PROTEIN(semi-quant) Negative (NEGATIVE); URINE RBC 0-2 /hpf; URINE UROBILINOGEN Negative (NEGATIVE)
[2019-11-05 16:12] LABS: ALBUMIN 3.8 gm/dL (3.5-5.0); BILIRUBIN,TOTAL 0.8 mg/dL (0.0-1.0); CALCIUM 8.8 mg/dL (8.4-10.2); CREATININE, serum 1.14 (0.66-1.25); POTASSIUM 4.2 mmol/L (3.4-5.0); TOTAL PROTEIN 6.8 gm/dL (6.4-8.2)
[2019-11-05] MEDS ORDERED: ZOFRAN ODT4 MG PO (16:16)
[2019-11-05 17:30] VITALS: BP 122/85; PULSE 76
[2019-11-08] MEDS ORDERED: PYRIDIUM 100MG100 MG PO (07:31)
[2019-11-08] MEDS ORDERED: LEVAQUIN 5500 MG/TA1 PO ×2 (10:27)
== END 2019-11-05 18:00 | disposition home or self-care (01) ==
LOC: COL.ER 15:08
PROVIDERS: Emergency Medicine
DX: T83.098A Other mechanical complication of other urinary catheter, initial encounter (principal); R11.2 Nausea with vomiting, unspecified; E87.1 Hypo-osmolality and hyponatremia
CPT/HCPCS: J2405; J3010; J7040

== ENCOUNTER 2019-11-07 03:30 | Emergency (ER) | payer MEDICARE, MEDICAID ==
[~2019-11-07] VITALS: Ht 177.8 cm; Wt 100.0 kg
[~2019-11-07 03:30] MED LIST changes: +MYRBETR25MG PO
[2019-11-07 03:44] VITALS: TEMP 97.8
[2019-11-07 04:17] LABS: COLLECTION METHOD CATHETER
[2019-11-07 04:44] LABS: AMORPHOUS CRYSTAL Present /uL; PH 9 (5-8); SQUAMOUS EPITHELIAL 0-2 /hpf; URINE APPEARANCE Cloudy; URINE BACTERIA Rare /hpf; URINE BILIRUBIN Negative (NEGATIVE); URINE BLOOD Negative (NEGATIVE); URINE COLOR Yellow; URINE GLUCOSE Negative (NEGATIVE); URINE KETONE Negative (NEGATIVE); URINE LEUKOCYTE ESTERASE 2+ (NEGATIVE); URINE NITRATE Negative (NEGATIVE); URINE PROTEIN(semi-quant) 2+ (NEGATIVE); URINE RBC 20-50 /hpf; URINE TRIPLE PHOSPHATE CRYSTAL Present /hpf; URINE UROBILINOGEN Negative (NEGATIVE)
[2019-11-07 06:29] VITALS: BP 124/72; PULSE 72
[2019-11-08] MEDS ORDERED: PYRIDIUM 100MG100 MG PO (07:31)
[2019-11-08] MEDS ORDERED: LEVAQUIN 5500 MG/TA1 PO ×2 (10:27)
== END 2019-11-07 06:38 | disposition home or self-care (01) ==
LOC: COL.ER 03:30
PROVIDERS: Emergency Medicine
DX: N48.1 Balanitis (principal); K59.00 Constipation, unspecified; I25.2 Old myocardial infarction; I25.10 Atherosclerotic heart disease of native coronary artery without angina pectoris; I10 Essential (primary) hypertension; E78.00 Pure hypercholesterolemia, unspecified; Z88.1 Allergy status to other antibiotic agents; Z88.6 Allergy status to analgesic agent; Z88.8 Allergy status to other drugs, medicaments and biological substances; Z91.048 Other nonmedicinal substance allergy status

== ENCOUNTER 2019-11-09 09:57 | Observation (INO) | payer MEDICARE, MEDICAID ==
--- NOTE | 2019-11-08 10:49 | NUR ---
Initial visit; Patient thanked Survey Research Teacher for looking in on him, listening and offering prayer while he was in ER. Survey Research Teacher will follow up when he is assigned a room.
[~2019-11-09] VITALS: Ht 177.8 cm; Wt 94.2 kg
[2019-11-09] VITALS (10 sets, daily range): BP systolic 125–148; BP diastolic 62–80; PULSE 58–81; TEMP 97.2–99.1
[~2019-11-09 09:57] MED LIST changes: +PYRIDIUM 100MG100 MG PO
[2019-11-09] MEDS ORDERED: TOPROL XL 25MG25 MG PO (11:05)
--- NOTE | 2019-11-09 15:18 | NUR ---
Patient to room via bed from PACU. Patient is alert and oriented. Denies pain. CBI infusing slowly. Sánchez to dependent drainage draining clear yellow urine. Denies pain. Moves all extremities without issues. Oriented to room. at bedside. Denies additional needs.
--- NOTE | 2019-11-09 16:28 | NUR ---
Patient explains that he is having some cramping sensation in lower abd. Will administer medication as prescribed. Denies additional needs.
--- NOTE | 2019-11-09 17:38 | NUR ---
Sitting up in bed eating dinner. Continues to have some lower abd cramping. Sánchez to dependent drainage draining clear red urine. CBI infusing at medium rate. Patient denies additional needs at this time.
[2019-11-10 03:54] VITALS: BP 118/69; PULSE 77; TEMP 97.4
--- NOTE | 2019-11-10 04:49 | NUR ---
Patient has not slept well this shift. CBI continues to run at a moderate rate. Currently, urine is pink. At about 2020 patient compained of pain to his right shoulder. PRN Tylenol administered. Patient states this is not effective, but was able to sleep for a little while. Patient awoke at 2300 and stated he felt like he was having a bladder spasm. Upon assessment, louis was not draining. Catheter irrigated and a few larger clots were able to be removed. Levsin administered. Louis then continued to drain well. Patient then called at 2330 and stated he was having heartburn and gas pain. PRN Milk of Magnesia was administered with no relief. Patient called at 0130 and patient stated he had a lot of pressure on his bladder and was continuing to have heartburn. This nurse called Dr. Baptiste, and he ordered TUMS 1000mg PRN and Protonix 20mg x1 dose. This nurse then realized patient is allergic to protonix so this was not administered. TUMS was administered and effective. PRN B&O suppository was administered for the pressure in his bladder. Patient was able to finally relax at this time and sleep. IVF continue to left forearm. CBI continues to run at moderate rate, to keep pink. Will continue to monitor patient.
[2019-11-10 08:50] VITALS: BP 122/72; PULSE 72; TEMP 98.9
--- NOTE | 2019-11-10 09:10 | NUR ---
Patient assisted to chair. Steady on his feet. Cbi remains to slow/moderate rate. Sellers tinged output. Ivf to Lfa. Patient having intermittent nausea. Teodoro Galan rounded.
[2019-11-10 10:45] VITALS: BP 133/54; PULSE 74; TEMP 98.5
--- NOTE | 2019-11-10 11:45 | NUR ---
Patient continues to be nauseated. Prn zofran given. PO meds given as scheduled with tylenol for pain & levsin to relax bladder. Patient not having lunch. Attempted hand irrigation, no clots irrigated.
[2019-11-10 12:34] LABS: BASO # 0.1 (0.0-0.2); EOS # 0.2 (0.0-0.7); EOS % 3.1 % (0-4.0); GRAN # 5.9 (1.4-6.5); HEMATOCRIT 38.9 % (42.0-52.0); LYMPH # 0.7 (1.2-3.4); LYMPH % 8.4 % (20.0-51.0); MEAN CELL VOLUME 90 fl (80.0-100.0); MEAN CORPUSCULAR HEMOGLOBIN 30 pg (27.0-31.0); MEAN CORPUSCULAR HGB CONC 33 g/dl (33.0-37.0); MEAN PLATELET VOLUME 8.2 fl (7.4-10.4); MONO # 0.9 (0.1-0.6); PLATELET COUNT 245 K/mm3 (130-400); RED BLOOD COUNT 4.32 M/mm3 (4.20-5.60); REDCELL DISTRIBUTION WIDTH-CV 14.1 % (11.5-14.5)
[2019-11-10 12:46] LABS: CALCIUM 8.7 mg/dL (8.4-10.2); CREATININE, serum 0.82 (0.66-1.25); POTASSIUM 4.7 mmol/L (3.4-5.0)
--- NOTE | 2019-11-10 16:34 | NUR ---
The patient is on contact precautions. Log Rider contacted the patient's , Tiffani to complete inital intake. The patient has a cane and is independent with ADLs. The patient's PCP is Dr. Delgado and patient receives medications from [facility] pharmacy. The patient has advanced directives. The patient has not had HHS in the past but Tiffani [facility]. Since the patient is in observation status, SW to contact Dr. Delgado's office regarding these services. The patient will return home at discharge with Tiffani providing transportation. There are no additional needs at this time.
--- NOTE | 2019-11-10 16:34 | NUR ---
Patient feeling better this afternoon. Nausea has subsided. Appetite improved, he tolerated vanilla ice cream & interested in dinner. Cbi has been slowed. Will monitor.
[2019-11-10 17:59] VITALS: BP 114/74; PULSE 82; TEMP 98.3
--- NOTE | 2019-11-10 19:02 | NUR ---
Patient did well with dinner, denies nausea. Cbi slowed. Vss. Bedside report to Cecilia LISA
[2019-11-10 20:22] VITALS: BP 122/69; PULSE 81; TEMP 98.7
[2019-11-11 00:48] VITALS: BP 114/71; PULSE 80; TEMP 99.8
--- NOTE | 2019-11-11 03:50 | NUR ---
Patient has rested well throughout the night. Denies any nausea this shift. No abdominal pain. CBI continues at a slow rate. Urine is pink to light red in color. Minimal small clots noted. Patient taking PO intake well. Patient up to the bathroom with stand-by assist from staff. No bowel movement, but did pass gas. Patient states he feels a lot better tonight than he did today. Will continue to monitor patient.
[2019-11-11 04:50] VITALS: BP 123/78; PULSE 81; TEMP 97.3
[2019-11-11 07:26] VITALS: BP 122/81; PULSE 81; TEMP 98.5
--- NOTE | 2019-11-11 09:30 | NUR ---
Patient resting in bed at this time. Patient rouses easily and is alert and appropriate while awake. CBI and catheter removed per order, six cup routine initiated. Patient tolerated procedure well. Patient instructed to use urinal or call for assistance to bathroom to void and to report each void. Patient verbalized understanding, call light within reach.
[2019-11-11 12:00] VITALS: BP 111/75; PULSE 77; TEMP 97.7
--- NOTE | 2019-11-11 16:30 | NUR ---
Patient is discharging home. Urine was clear and orange from the AZO, no clots noted. Patients was in the room with him to hear discharge instructions. No questions verbalized. INT discontinued. Copies of discharge instructions given to patient. Explained office will call with follow up. Noother changes at this time. No new prescriptions. All belongings packed up and sent with patient. Patient walked out via wheel chair by Jocelin BALL.
== END 2019-11-11 16:30 | disposition home or self-care (01) ==
LOC: SDCO 09:57 → SURG 14:12
PROVIDERS: ADMIT Urology
DX: C61 Malignant neoplasm of prostate (principal); N40.0 Benign prostatic hyperplasia without lower urinary tract symptoms; R33.8 Other retention of urine; K59.00 Constipation, unspecified; I25.10 Atherosclerotic heart disease of native coronary artery without angina pectoris; I25.2 Old myocardial infarction; E78.5 Hyperlipidemia, unspecified; J45.909 Unspecified asthma, uncomplicated; K21.9 Gastro-esophageal reflux disease without esophagitis; Z79.51 Long term (current) use of inhaled steroids; Z88.8 Allergy status to other drugs, medicaments and biological substances; Z88.5 Allergy status to narcotic agent; Z88.6 Allergy status to analgesic agent; Z90.49 Acquired absence of other specified parts of digestive tract; Z95.5 Presence of coronary angioplasty implant and graft; Z95.0 Presence of cardiac pacemaker; Z86.73 Personal history of transient ischemic attack (TIA), and cerebral infarction without residual deficits
CPT/HCPCS: G0378; J2250; J2405; J2704; J3010; J3480; J7120

== ENCOUNTER 2020-02-01 14:55 | Inpatient (IN) | payer MEDICARE, MEDICAID ==
[~2020-02-01] VITALS: Ht 177.8 cm; Wt 93.1 kg
[~2020-02-01 14:55] MED LIST changes: +TOPROL XL 25MG25 MG PO
[2020-02-01 16:19] LABS: BASO # 0.1 (0.0-0.2); BASO % 0.4 % (0.0-2.0); EOS # 0.1 (0.0-0.7); EOS % 0.8 % (0-4.0); GRAN # 10.8 (1.4-6.5); GRAN % 83.9 % (42.2-75.2); HEMATOCRIT 38.8 % (42.0-52.0); HEMOGLOBIN 13.2 g/dl (13.5-18.0); LYMPH # 0.8 (1.2-3.4); LYMPH % 6.1 % (20.0-51.0); MEAN CELL VOLUME 88 fl (80.0-100.0); MEAN CORPUSCULAR HEMOGLOBIN 30 pg (27.0-31.0); MEAN CORPUSCULAR HGB CONC 34 g/dl (33.0-37.0); MEAN PLATELET VOLUME 8.5 fl (7.4-10.4); MONO # 1.1 (0.1-0.6); MONO % 8.2 % (1.7-9.3); PLATELET COUNT 202 K/mm3 (130-400); REDCELL DISTRIBUTION WIDTH-CV 14.4 % (11.5-14.5)
[2020-02-01 16:26] LABS: INR 1.1 (0.8-3.0); PROTHROMBIN TIME 11.9 SECONDS (9.7-12.8)
[2020-02-01 16:30] LABS: ALANINE AMINOTRANSFERASE 20 U/L (4-49); ALBUMIN 4.3 gm/dL (3.5-5.0); ALKALINE PHOSPHATASE 57 U/L (50-136); ANION GAP 9 mmol/L (7-16); AST,SGOT 23 U/L (15-37); BILIRUBIN,TOTAL 0.9 mg/dL (0.0-1.0); BLOOD UREA NITROGEN 21 mg/dL (9-20); C-REACTIVE PROTEIN 0.6 mg/dL (0.0-0.9); CALCIUM 8.7 mg/dL (8.4-10.2); CARBON DIOXIDE 28 mmol/L (22-30); CHLORIDE 99 mmol/L (98-107); CREATININE, serum 1.21 (0.66-1.25); GLUCOSE 128 mg/dL (74-106); POTASSIUM 3.9 mmol/L (3.4-5.0); SODIUM 135 mmol/L (137-145); TOTAL PROTEIN 7.3 gm/dL (6.4-8.2)
[2020-02-01 16:40] LABS: TROPONIN-I < 0.012 ng/mL (0.000-0.035)
[2020-02-01 16:50] LABS: COLLECTION METHOD CATHETER
[2020-02-01 17:07] LABS: AMORPHOUS CRYSTAL Present /uL; PH 7 (5-8); SQUAMOUS EPITHELIAL None Seen /hpf; URINE APPEARANCE Hazy; URINE BACTERIA Occasional /hpf; URINE BILIRUBIN Negative (NEGATIVE); URINE BLOOD 1+ (NEGATIVE); URINE COLOR Yellow; URINE GLUCOSE Negative (NEGATIVE); URINE KETONE Negative (NEGATIVE); URINE LEUKOCYTE ESTERASE 2+ (NEGATIVE); URINE NITRATE Negative (NEGATIVE); URINE PROTEIN(semi-quant) Negative (NEGATIVE); URINE RBC 0-2 /hpf; URINE UROBILINOGEN Negative (NEGATIVE)
--- NOTE | 2020-02-01 19:56 | NUR ---
Received report from ED RN Emelyn.
[2020-02-01 21:04] VITALS: BP 110/56; PULSE 64; TEMP 98.4
--- NOTE | 2020-02-01 22:00 | NUR ---
A/O x4. Verbal, speech clear, ambulatory/SBA to BR. Denies any pain, headache or dizziness at this time. States having heart burn/indigestion, denies nausea, requesting something to eat/drink. Snacks provided as requested with relief. Scheduled meds administered. IVF infusing to RH, intact, dressing CDI. Tele monitor in place, leads checked. Needs met at this time. Call light within reach.
[2020-02-01 23:48] VITALS: BP 106/58; PULSE 75; TEMP 99.5
[2020-02-02] VITALS (7 sets, daily range): BP systolic 103–114; BP diastolic 55–80; PULSE 64–79; TEMP 97.7–100.8
--- NOTE | 2020-02-02 05:57 | NUR ---
Pt used call light for assistance to BR. Pt voided multiple times throughout the night. No complaints made. Snacks and drink provided as requested. IVF infusing. Call light within reach.
[2020-02-02 06:25] LABS: BASO # 0.1 (0.0-0.2); BASO % 0.5 % (0.0-2.0); EOS % 0.3 % (0-4.0); GRAN # 12.1 (1.4-6.5); GRAN % 82.3 % (42.2-75.2); HEMATOCRIT 36.5 % (42.0-52.0); HEMOGLOBIN 12.1 g/dl (13.5-18.0); LYMPH # 1.1 (1.2-3.4); LYMPH % 7.5 % (20.0-51.0); MEAN CELL VOLUME 89 fl (80.0-100.0); MEAN CORPUSCULAR HEMOGLOBIN 30 pg (27.0-31.0); MEAN CORPUSCULAR HGB CONC 33 g/dl (33.0-37.0); MEAN PLATELET VOLUME 8.9 fl (7.4-10.4); MONO # 1.3 (0.1-0.6); MONO % 8.7 % (1.7-9.3); PLATELET COUNT 192 K/mm3 (130-400); REDCELL DISTRIBUTION WIDTH-CV 14.6 % (11.5-14.5)
[2020-02-02 06:40] LABS: CALCIUM 7.7 mg/dL (8.4-10.2); CREATININE, serum 0.95 (0.66-1.25); POTASSIUM 3.8 mmol/L (3.4-5.0)
--- NOTE | 2020-02-02 06:41 | NUR ---
Report given to SLOAN Knight.
--- NOTE | 2020-02-02 08:20 | NUR ---
PT PLEASANT, AOX4, STEADY GAIT, FLUIDS HUNG, VITALS TAKEN, MEDS GIVEN, ASSESSMENT PERFORMED, PT REPORTS PAIN IN RUQ, TYLENOL GIVEN FOR FEVER AND PAIN. NO OTHER NEEDS AT THIS TIME.
--- NOTE | 2020-02-02 10:13 | NUR ---
Initial visit; Patient remembers Hydraulic Controls Technician from prior visits to the hospital. Hydraulic Controls Technician listened and offered encouragement. Finn was receptive to Hydraulic Controls Technician keeping him in her prayers.
--- NOTE | 2020-02-02 10:59 | NUR ---
SW met with the patient to discuss discharge plan. The [place] with his , Tiffani (ph#[phone]). He states that his son, Roberth (ph#[phone]), lives nearby them. He reports independence with ADLs and has a cane and walker. The patient's PCP is Dr. Fan Delgado and he receives his medications from [facility]. He reports no difficulties obtaining his meds. The patient's DPOA-HC is in EMR and it designates his , son (Roberth), and daughter (Kamini Akers). Kamini lives in [place]. The patient plans to return home with his upon discharge. PT evaluated the patient and recommend home with family assistance and home health. ANETTE contacted and reviewed the above information with the patient's , Tiffani. Tiffani is in agreement with the patient returning back home with her upon discharge. She states that she would be interested in home health for the patient. She states that she receives home health for herself from [facility] and would want them for the patient. ANETTE contacted and faxed a referral to [facility]. SW awaiting their screen.
--- NOTE | 2020-02-02 15:31 | NUR ---
Nettie, at [facility], reports that they are able to accept the patient for services. SW to inform the patient and his , Tiffani.
--- NOTE | 2020-02-02 17:00 | NUR ---
NOTIFIED CONSUELO DISLA OF PT COUGH AND FEVER. NOTIFIED HER OF PT C/O OF CHEST PAIN "HEARTBURN"
--- NOTE | 2020-02-02 17:13 | NUR ---
PT PLEASANT, PT AOX4, COUGH PRESENT, FEVER PRESENT, TYLENOL GIVEN, NEW IV STARTED IN LFA, PT ON RA, PT C/O HEARTBURN, GI COCKTAIL ORDERED, NO OTHER NEEDS AT THIS TIME.
--- NOTE | 2020-02-02 17:20 | NUR ---
LAB NOTIFIED OF PSEUDOMONAS IN BLOOD, REPORTED TO CONSUELO DISLA.
--- NOTE | 2020-02-02 20:04 | NUR ---
Received report from SLOAN Knight. SBA to BR, pt needing assistance with IV pump. C/O epigastric pain describes it as heartburn. PRN GI cocktail administered with scheulded meds. IVF infusing to LFA intact, dressing CDI. Water provided. Denture cup provided with water, pt placed top and bottom dentures in cup, at bedside table. Call light within reach. Temp 100.0, pt states feeling fine, will monitor.
[2020-02-03 03:43] VITALS: BP 122/64; PULSE 77; TEMP 99.2
--- NOTE | 2020-02-03 04:22 | NUR ---
Pt c/o pain to IV site to LFA. IV to LFA infiltrated, cool to touch around site with NS infusing. LFA IV DC'd, catheter intact. LA elevated on pillow. New IV started 20G to RFA, flushed well, dressing CDI, tolerated well. Fluids restarted to new IV site.
--- NOTE | 2020-02-03 05:18 | NUR ---
Pt c/o headache and backache, prn tylenol administered as requested by pt. Meds administered. needs met. Call light within reach.
--- NOTE | 2020-02-03 06:31 | NUR ---
Blood transfusion consent obtained from pt. Pt slept through the night w/o complaints. Meds administered. Needs met. call light within reach.
[2020-02-03 07:12] LABS: BASO # 0.1 (0.0-0.2); BASO % 0.6 % (0.0-2.0); EOS # 0.1 (0.0-0.7); EOS % 0.5 % (0-4.0); GRAN # 10.3 (1.4-6.5); GRAN % 81.7 % (42.2-75.2); HEMOGLOBIN 11.7 g/dl (13.5-18.0); LYMPH # 1.1 (1.2-3.4); LYMPH % 8.4 % (20.0-51.0); MEAN CELL VOLUME 89 fl (80.0-100.0); MEAN CORPUSCULAR HEMOGLOBIN 30 pg (27.0-31.0); MEAN CORPUSCULAR HGB CONC 34 g/dl (33.0-37.0); MEAN PLATELET VOLUME 8.8 fl (7.4-10.4); PLATELET COUNT 185 K/mm3 (130-400); RED BLOOD COUNT 3.91 M/mm3 (4.20-5.60); REDCELL DISTRIBUTION WIDTH-CV 14.7 % (11.5-14.5)
[2020-02-03 07:15] LABS: HEMATOCRIT 34.6 % (42.0-52.0)
--- NOTE | 2020-02-03 07:24 | NUR ---
Report given to SLOAN Gerard.
[2020-02-03 07:26] LABS: CALCIUM 7.5 mg/dL (8.4-10.2); CREATININE, serum 0.8 (0.66-1.25); MAGNESIUM 2.2 mg/dL (1.6-2.3); POTASSIUM 3.7 mmol/L (3.4-5.0)
[2020-02-03 07:47] VITALS: BP 124/81; PULSE 66; TEMP 98.6
[2020-02-03 11:01] VITALS: BP 110/62; PULSE 63; TEMP 98.2
--- NOTE | 2020-02-03 13:32 | NUR ---
Primary nurse was assisted with [id number] patient care by [employer] student Manuela Gann and [employer] instructor Marybeth Lira RN-.
--- NOTE | 2020-02-03 15:19 | NUR ---
Follow-up visit; Patient spoke of his health issues and complained of being cold. He said a nurse brought him another blanked but still feels cold. He thanked Family Practice Physician Assistant for looking in on him.
[2020-02-03 15:36] VITALS: BP 147/73; PULSE 75; TEMP 99.6
--- NOTE | 2020-02-03 17:40 | NUR ---
Patient resting in bed at this time. Patient has c/o constipation today, bowel medications administered per orders and patient request with no results. Bowel sounds audible x4, abdomen is soft and patient reports last bowel movement was yesterday. Patient c/o nausea and had one episode of a small amount of emesis. Emisis was liquid and clear, no food visible. Will administer PRN nausea medicaiton per order.
[2020-02-03 19:23] VITALS: BP 135/68; PULSE 85; TEMP 98.2
--- NOTE | 2020-02-03 19:30 | NUR ---
Pt was sleeping while this nurse went for a bedside handover. Pt was complaining of upset abdomen and no further needs at this time.
[2020-02-03 23:29] VITALS: BP 125/72; PULSE 73; TEMP 98.1
--- NOTE | 2020-02-04 00:34 | NUR ---
Pt assessment completed and charted, alert, oriented, roomair. Meds provided as per MAR, tolerated well. PRN antiemetic provided as per pt request. Pt is settled on his bed, call light is on reach. No further needs at this time.
[2020-02-04 03:43] VITALS: BP 139/73; PULSE 70; TEMP 98.1
--- NOTE | 2020-02-04 04:00 | NUR ---
Pt was frequently getting up to urinate, did bladder scan and found more than 200 ml fluid. Informed Susie/hospitalist and got an order for stat folley catheter, SLOAN Monreal and this nurse placed a folley on the pt. Pt had approx. 200 ml of urine output just after folley placement. Pt stated that now he feels better. No further needs at this time.
--- NOTE | 2020-02-04 06:24 | NUR ---
Pt slept on and off through out the night, no further needs at this time.
[2020-02-04 07:05] LABS: BASO # 0.1 (0.0-0.2); BASO % 0.5 % (0.0-2.0); EOS # 0.1 (0.0-0.7); EOS % 0.5 % (0-4.0); GRAN # 8.7 (1.4-6.5); GRAN % 82.3 % (42.2-75.2); HEMOGLOBIN 12.2 g/dl (13.5-18.0); LYMPH # 0.7 (1.2-3.4); MEAN CELL VOLUME 89 fl (80.0-100.0); MEAN CORPUSCULAR HEMOGLOBIN 30 pg (27.0-31.0); MEAN CORPUSCULAR HGB CONC 34 g/dl (33.0-37.0); PLATELET COUNT 200 K/mm3 (130-400); RED BLOOD COUNT 4.08 M/mm3 (4.20-5.60); REDCELL DISTRIBUTION WIDTH-CV 14.4 % (11.5-14.5)
[2020-02-04 07:12] LABS: HEMATOCRIT 36.1 % (42.0-52.0)
[2020-02-04 07:13] LABS: CALCIUM 7.8 mg/dL (8.4-10.2); CREATININE, serum 0.67 (0.66-1.25)
[2020-02-04 08:10] VITALS: BP 138/79; PULSE 76; TEMP 98.6
--- NOTE | 2020-02-04 10:37 | NUR ---
Performed Pt assessment, reviewed student assessment and agree with her assessment.
--- NOTE | 2020-02-04 14:21 | NUR ---
Primary nurse was assisted with [id number] patient care by [employer] student Manuela Gann and [employer] instructor Marybeth Lira RN-.
[2020-02-04 18:02] VITALS: BP 127/72; PULSE 81; TEMP 99.4
--- NOTE | 2020-02-04 18:30 | NUR ---
Pt resting in the room today, no C/O of pain, VS have remained stable.
--- NOTE | 2020-02-04 19:00 | NUR ---
Pt was setting on his bedside when this nurse went for bedside handover. No further needs at this time.
[2020-02-04 21:12] VITALS: BP 1125/76; PULSE 85; TEMP 98.2
[2020-02-05] VITALS (7 sets, daily range): BP systolic 113–137; BP diastolic 70–80; PULSE 74–91; TEMP 97.7–99.2
--- NOTE | 2020-02-05 01:42 | NUR ---
Pt assessment completed and charted, alert, oriented, roomair. Meds provided as per MAR, tolerated well. Pt is settled on his bed, call light is on reach. No further needs at this time.
--- NOTE | 2020-02-05 06:07 | NUR ---
Pt had uneventful night. Morning meds provided as per MAY. No further needs at this time.
[2020-02-05 06:40] LABS: BASO # 0.1 (0.0-0.2); BASO % 0.8 % (0.0-2.0); EOS % 0.6 % (0-4.0); GRAN # 4.8 (1.4-6.5); GRAN % 74.1 % (42.2-75.2); LYMPH # 0.6 (1.2-3.4); LYMPH % 9.8 % (20.0-51.0); MEAN CELL VOLUME 87 fl (80.0-100.0); MEAN CORPUSCULAR HEMOGLOBIN 30 pg (27.0-31.0); MEAN CORPUSCULAR HGB CONC 35 g/dl (33.0-37.0); MEAN PLATELET VOLUME 8.6 fl (7.4-10.4); MONO # 0.9 (0.1-0.6); MONO % 13.8 % (1.7-9.3); PLATELET COUNT 237 K/mm3 (130-400); RED BLOOD COUNT 3.97 M/mm3 (4.20-5.60); REDCELL DISTRIBUTION WIDTH-CV 14.4 % (11.5-14.5)
[2020-02-05 06:46] LABS: HEMATOCRIT 34.6 % (42.0-52.0)
[2020-02-05 07:00] LABS: CALCIUM 7.9 mg/dL (8.4-10.2); CREATININE, serum 0.76 (0.66-1.25); POTASSIUM 4.1 mmol/L (3.4-5.0)
--- NOTE | 2020-02-05 09:03 | NUR ---
Pt assessment complete. Pt is sitting on the side of the bed eating on entry, he is A/O x4. He reports his pain is d/t his bowels, unable to have a significant BM. Some nausea present, but patient eating. Medications discussed with patient. Daniel GONZALEZ. Call light within reach. Will continue to monitor.
--- NOTE | 2020-02-05 18:34 | NUR ---
Pt reports having some better luck with BM's today, all runny in consistency. No vomitting through the day. New IV started to RAC d/t infiltration. Gonzalo GONZALEZ. Will continue to monitor.
--- NOTE | 2020-02-05 20:30 | NUR ---
Patient assessed at this time. Alert and oriented x 4, and able to make needs known. Denies having pain and discomfort at this time. Peripheral INT to right forearm flushed. Site without redness, warmth, swelling, and pain. Denies SOB and dyspnea. LS CTA. Respirations even and unlabored. HRR. Capillary refill less than 3 seconds. Non-tenting skin turgor. BSAx4. Abdomen soft and non-tender. 1+ edema BLE. Indwelling louis catheter patent, and draining cloudy yellow urine via dependent drainage. Voices no questions, needs, or concerns at this time. Resting in bed with call light within reach.
[2020-02-06 04:04] VITALS: BP 131/76; PULSE 70; TEMP 97.9
--- NOTE | 2020-02-06 06:42 | NUR ---
Patient complained of pain to back, and was given PRN APAP this morning. Voices no further questions, needs, or concerns at this time. Indwelling louis catheter continues to drain cloudy yellow urine via dependent drainage. Voices no questions, needs, or concerns at this time. Resting in bed with call light within reach.
[2020-02-06 08:06] VITALS: BP 142/84; PULSE 75; TEMP 97.6
--- NOTE | 2020-02-06 10:12 | NUR ---
Pt assessment complete. Pt is sitting up on the side of the bed upon entry, he is A/O x4. He denies pain, states he does not feel constipated as he has had several runny stools. Abdomen still distended and firm, patient reports feeling gassy. Rectum is sore, barrier cream applied. Gonzalo DD. POC discussed with patient who verbalizes understanding. No needs at this time.
[2020-02-06 11:19] VITALS: BP 118/78; PULSE 80; TEMP 98
[2020-02-06 15:41] VITALS: BP 152/86; PULSE 75; TEMP 97.2
--- NOTE | 2020-02-06 19:00 | NUR ---
Pt was sleeping when this nurse went for a bedside handover. No further needs at this time.
[2020-02-06 19:22] VITALS: BP 135/74; PULSE 72; TEMP 98.7
--- NOTE | 2020-02-06 19:55 | NUR ---
Pt continued to report bloating and gas through the day. Runny small stools. Continues to be distended. No N/V. POC to obtain CDIFF sample discussed with patient. No needs at this time.
--- NOTE | 2020-02-06 23:10 | NUR ---
Pt assessment completed and charted, alert, oriented, roomair. Meds provided as per MAY, tolerated well. Pt denied stomach pain, N/V at this time. Pt is settled on his bed, call light is on reach. No further needs at this time.
[2020-02-07 00:15] VITALS: BP 127/75; PULSE 80; TEMP 97.9
[2020-02-07 03:39] VITALS: BP 131/75; PULSE 72; TEMP 97.7
--- NOTE | 2020-02-07 04:51 | NUR ---
Pt had an eventful night, slept through out the night. No further needs at this time.
--- NOTE | 2020-02-07 06:31 | NUR ---
Pt had an uneventful night, slept through out the night. Morning meds provided as per MAY. No further needs at this time.
[2020-02-07 07:45] VITALS: BP 128/78; PULSE 81; TEMP 98.3
--- NOTE | 2020-02-07 10:22 | NUR ---
Follow-up visit; Patient thanked Merchandiser Retail Representative for stopping by and visiting. Patient states he will be discharged today and appreciates God's blessings.
--- NOTE | 2020-02-07 11:15 | NUR ---
PATIENT'S HAYNES CATHETER DISCONTINUED PER DOCTOR ORDERS. 7 MLS OF STERILE WATER ASPIRATED FROM BALLOON. TIP INTACT. PATIENT TOLERATED WELL. JIM CARE PROVIDED. PATIENT REPORTS ABDOMINAL DISCOMFORT AT THIS TIME.
--- NOTE | 2020-02-07 11:24 | NUR ---
GABRIELLA WITH [facility] CALLED ON PATIENTS PICC LINE PLACEMENT. MESSAGE LEFT.
[2020-02-07] MEDS ORDERED: MAXIPIME2 GM IJ (11:41)
[2020-02-07] MEDS ORDERED: FLOMAX 0.40.4 MG/CAP PO (11:47)
[2020-02-07 11:54] VITALS: BP 116/52; PULSE 76; TEMP 98
[2020-02-07 14:44] VITALS: BP 126/69; PULSE 82; TEMP 98.5
--- NOTE | 2020-02-07 14:49 | NUR ---
Small Animal Caretaker attended clinical rounds with the team and patient is ready for discharge today. Patient will require 10 days of IV Cefepime upon discharge. Following rounds, ANETTE spoke with patient's son Roberth about options for IV antibiotics. Roberth reports that patient lives with his , Tiffani and Roberth does not feel comfortable with setting up home infusions. Roberth would like to have outpatient IV antibiotics set up at [facility] and preferred 8a/8p for appointments. ANETTE contacted Tangela, under sheriff and faxed referral. Tangela scheduled patient for 8a/8p appointments starting tomorrow. ANETTE contacted Roberth to give appointment times. Roberth states he will provide transportation to these appointments starting tomorrow. ANETTE contacted Germania at [facility] and faxed orders. ANETTE contacted Tangela at [facility] and confirmed she received fax. Patient to discharge home tonight after his last Cefepime infusion with for PT/OT/Nursing.
--- NOTE | 2020-02-07 15:00 | NUR ---
PATIENT VOIDING SUFFICIENTLY POST HAYNES REMOVAL.
--- NOTE | 2020-02-07 16:12 | NUR ---
PATIENT RATING HIS PAIN A 1-2/10 IN THE ABDOMEN AND DESCRIBES IT A PRESSURE. PATIENT REPORTS THAT HIS ABDOMINAL DISCOMFORT HAS IMPROVED AFTER TAKING THE GI COCKTAIL. PATIENT RESTING IN BED. GABRIELLA TO PLACE PICC LINE PRIOR TO PATIENT DISCHARGING THIS EVENING. PATIENT DENIES ANY OTHER NEEDS AT THIS TIME.
--- NOTE | 2020-02-07 20:20 | NUR ---
Patient discharge paperwork reviewed with patient and patient son. All questions answered. Patient taken via wheel chair to ER by TALENT ACQUISITION OPERATIONS MANAGER and left in sons car.
== END 2020-02-07 20:20 | disposition home health service (06) | DRG 872 ==
LOC: COL.ER 14:55 → MEDICAL 17:32
PROVIDERS: Emergency Medicine; Internal Medicine; Physician Assistant; ADMIT Student in an Organized Health Care Education/Training Program
PROC: 02HV33Z Insertion of Infusion Device into Superior Vena Cava, Percutaneous Approach (ICD-10-PCS; principal; 2020-02-01)
DX: A41.52 Sepsis due to Pseudomonas (principal); N39.0 Urinary tract infection, site not specified; I13.0 Hypertensive heart and chronic kidney disease with heart failure and stage 1 through stage 4 chronic kidney disease, or unspecified chronic kidney disease; N40.0 Benign prostatic hyperplasia without lower urinary tract symptoms; E78.5 Hyperlipidemia, unspecified; J44.9 Chronic obstructive pulmonary disease, unspecified; I50.9 Heart failure, unspecified; N18.9 Chronic kidney disease, unspecified; I73.9 Peripheral vascular disease, unspecified; I25.10 Atherosclerotic heart disease of native coronary artery without angina pectoris; K58.1 Irritable bowel syndrome with constipation; K22.70 Barrett's esophagus without dysplasia; Z20.828 Contact with and (suspected) exposure to other viral communicable diseases; Z95.1 Presence of aortocoronary bypass graft; Z87.891 Personal history of nicotine dependence; Z88.1 Allergy status to other antibiotic agents; Z88.6 Allergy status to analgesic agent; Z88.8 Allergy status to other drugs, medicaments and biological substances; Z95.810 Presence of automatic (implantable) cardiac defibrillator; Z95.5 Presence of coronary angioplasty implant and graft
CPT/HCPCS: 99222-AI; 99231-AI; 99232-AI; 99233-AI; 99239; C1751; J0692; J0696; J1650; J2405; J2550; J7030

== ENCOUNTER 2020-07-24 20:41 | Inpatient (IN) | payer MEDICARE, MEDICAID ==
[~2020-07-24] VITALS: Ht 177.8 cm; Wt 95.5 kg
[~2020-07-24 20:41] MED LIST changes: +MAXIPIME2 GM IJ
[2020-07-24 21:45] LABS: BASO # 0.1 (0.0-0.2); BASO % 0.7 % (0.0-2.0); EOS # 0.1 (0.0-0.7); EOS % 0.9 % (0-4.0); GRAN # 8.5 (1.4-6.5); GRAN % 81.5 % (42.2-75.2); HEMATOCRIT 41.6 % (42.0-52.0); HEMOGLOBIN 13.9 g/dl (13.5-18.0); LYMPH # 0.9 (1.2-3.4); LYMPH % 8.5 % (20.0-51.0); MEAN CELL VOLUME 88 fl (80.0-100.0); MEAN CORPUSCULAR HEMOGLOBIN 30 pg (27.0-31.0); MEAN CORPUSCULAR HGB CONC 33 g/dl (33.0-37.0); MEAN PLATELET VOLUME 8.5 fl (7.4-10.4); MONO # 0.8 (0.1-0.6); PLATELET COUNT 231 K/mm3 (130-400); RED BLOOD COUNT 4.71 M/mm3 (4.20-5.60); REDCELL DISTRIBUTION WIDTH-CV 14.6 % (11.5-14.5)
[2020-07-24 22:00] LABS: COLLECTION METHOD IN
[2020-07-24 22:01] LABS: ALBUMIN 4.1 gm/dL (3.5-5.0); BILIRUBIN,TOTAL 0.6 mg/dL (0.0-1.0); C-REACTIVE PROTEIN 2.2 mg/dL (0.0-0.9); CALCIUM 8.9 mg/dL (8.4-10.2); CREATININE, serum 1.07 (0.66-1.25); POTASSIUM 3.7 mmol/L (3.4-5.0); TOTAL PROTEIN 7.5 gm/dL (6.4-8.2)
[2020-07-24 22:08] LABS: BUDDING YEAST Present /hpf; PH 8 (5-8); SQUAMOUS EPITHELIAL 0-2 /hpf; URINE APPEARANCE Cloudy; URINE BACTERIA Occasional /hpf; URINE BILIRUBIN Negative (NEGATIVE); URINE BLOOD Negative (NEGATIVE); URINE COLOR Yellow; URINE GLUCOSE Negative (NEGATIVE); URINE KETONE Negative (NEGATIVE); URINE LEUKOCYTE ESTERASE 3+ (NEGATIVE); URINE NITRATE Positive (NEGATIVE); URINE PROTEIN(semi-quant) Negative (NEGATIVE); URINE UROBILINOGEN Negative (NEGATIVE)
[2020-07-25] VITALS (7 sets, daily range): BP systolic 102–117; BP diastolic 54–70; PULSE 70–88; TEMP 97.5–99
--- NOTE | 2020-07-25 02:35 | NUR ---
Patient transferred to medical floor room 308 from ER via hospital bed. Patient A/O x3. Oriented patient to the room. Initial assessment completed. VS stable. NS running at 150ml/hr via left forearm. Patient reports feeling a little naueous. CALIXTO Gonzalez recieved from ER prior to come to medical floor. HOB elevated 30 degrees. Patient reports some minor discomfort to his bladder. Sánchez catheter in place and draining cloudy yellow urine. Offered water per patient request. Bed alarms on. Call light within reach. Patient denies further needs at this time.
[2020-07-25 07:49] LABS: BASO % 0.5 % (0.0-2.0); EOS # 0.1 (0.0-0.7); EOS % 0.6 % (0-4.0); GRAN # 7.4 (1.4-6.5); HEMATOCRIT 39.9 % (42.0-52.0); LYMPH # 0.5 (1.2-3.4); LYMPH % 5.7 % (20.0-51.0); MEAN CELL VOLUME 91 fl (80.0-100.0); MEAN CORPUSCULAR HEMOGLOBIN 30 pg (27.0-31.0); MEAN CORPUSCULAR HGB CONC 33 g/dl (33.0-37.0); MEAN PLATELET VOLUME 8.7 fl (7.4-10.4); MONO # 0.6 (0.1-0.6); MONO % 6.7 % (1.7-9.3); PLATELET COUNT 222 K/mm3 (130-400); REDCELL DISTRIBUTION WIDTH-CV 14.6 % (11.5-14.5)
[2020-07-25 08:02] LABS: CALCIUM 8.2 mg/dL (8.4-10.2); CREATININE, serum 0.97 (0.66-1.25); POTASSIUM 3.4 mmol/L (3.4-5.0)
--- NOTE | 2020-07-25 08:50 | NUR ---
Assessment completed, alert/oriented, vital signs stable, denies pain, reports feeling "bloated and gassy", abdomen is distended and a little firm, BS + throughout, has hx of IBS and reports having a "good BM yesterday", louis patent with yellow / hazy urine, it is looking improved sence placing louis per night nurse, heart RRR/ lungs CTA, he is sittin at edge of bed wwaiting for his breakfast, denies other needs at this time
--- NOTE | 2020-07-25 12:47 | NUR ---
First visit from the grass farm laborer. No needs right now.
--- NOTE | 2020-07-25 13:50 | NUR ---
Latex Thread Machine Operator met with patient to discuss discharge planning. [place] with his , Tiffani (ph#[phone]) and sees Dr. Delgado for primary care. Patient obtains medications from [facility] with no difficulties. Patient uses a cane for ambulation and reports independence with ADLS. Patient states he has grab bars installed in his bathroom at home. Patient has Advance Directives in EMR which designate Tiffani Cartwright, Kamini Akers, and Ed Chay as DPOA-HC. Patient states he plans to return home upon discharge. ANETTE requested PT/OT orders. ANETTE also contacted Tiffani and left a message to review discharge plan. Discharge Plan: Home pending PT/OT evaluation and recommendations.
--- NOTE | 2020-07-25 14:43 | NUR ---
Nettie, from [facility], contacted ANETTE to inform that they had just d/c'd the patient from their services and had contacted the patient's to follow up. Nettie reports that the patient's would like to get services started back up again for the patient when he discharges here and that they are able to accept him. ANETTE faxed updated to Nettie at [facility].
--- NOTE | 2020-07-25 20:00 | NUR ---
Report received, assumed care for slot shift supervisor. Assessment complete. VS stable. A&Ox3. Denies pain/nausea. States he does get short of air with activity. INT to left forearm flushes without difficulty. Gonzalo was DCd at approx 1800-instructed to call this nurse when feels desire to void. Verbalizes understanding. Plan of care discussed for this shift to include HS meds/antibiotics/monitoring output/calling for questions/concerns. Verbalizes understanding/denies needs. Call light in reach. Will monitor.
--- NOTE | 2020-07-25 21:43 | NUR ---
Voided 100mls dark yellow urine. States he was able to void easy but feels bloated. This nurse did do a bladder scan-currently reading 220mls. Will continue to monitor output and do bladder scans PRN.
--- NOTE | 2020-07-26 01:00 | NUR ---
Voided 350mls dark yellow urine without difficulty. Bladder scan showing 100mls post void.
--- NOTE | 2020-07-26 04:30 | NUR ---
Voided 600mls of yellow urine without difficulty. Bladder scan reveals <100mls. Denies pain/nausea/shortness of breath. Rested well this shift. Denies needs. Call light in reach. Will monitor.
[2020-07-26 04:34] VITALS: BP 100/57; PULSE 72; TEMP 98.3
[2020-07-26 07:32] LABS: BASO # 0.1 (0.0-0.2); BASO % 1.3 % (0.0-2.0); EOS # 0.1 (0.0-0.7); EOS % 1.9 % (0-4.0); GRAN # 4.4 (1.4-6.5); GRAN % 70.7 % (42.2-75.2); HEMATOCRIT 37.1 % (42.0-52.0); HEMOGLOBIN 12.7 g/dl (13.5-18.0); LYMPH # 0.8 (1.2-3.4); LYMPH % 12.9 % (20.0-51.0); MEAN CELL VOLUME 88 fl (80.0-100.0); MEAN CORPUSCULAR HEMOGLOBIN 30 pg (27.0-31.0); MEAN CORPUSCULAR HGB CONC 34 g/dl (33.0-37.0); MEAN PLATELET VOLUME 8.9 fl (7.4-10.4); MONO # 0.8 (0.1-0.6); MONO % 12.6 % (1.7-9.3); PLATELET COUNT 205 K/mm3 (130-400); RED BLOOD COUNT 4.23 M/mm3 (4.20-5.60); REDCELL DISTRIBUTION WIDTH-CV 14.5 % (11.5-14.5)
[2020-07-26 07:47] LABS: CALCIUM 7.9 mg/dL (8.4-10.2); CREATININE, serum 0.9 (0.66-1.25); POTASSIUM 3.5 mmol/L (3.4-5.0)
[2020-07-26 07:53] VITALS: BP 117/62; PULSE 67; TEMP 98.1
--- NOTE | 2020-07-26 09:56 | NUR ---
Assessment completed, alert/oriented, vital signs stable, denies pain or discomfort, patient reports feeling better today, doing well s/p louis removal, PVR <300, abdomen is softer and reports having BM s/p Dulcolax suppository yesterday as well, urine Cx NGTD, he is eating breakfast, denies other needs at this time, will discuss plan of care with hospitalist
[2020-07-26] MEDS ORDERED: MACROBID 1100 MG/CAP PO (10:08)
[2020-07-26] MEDS ORDERED: DIFLUCAN200 MG PO (10:09)
--- NOTE | 2020-07-26 11:37 | NUR ---
Author attended clinical rounds with the team and patient's sonRoberth is on speakerphone for rounds. Patient is ready for discharge home today with home health services. After rounds, SW contacted patient's son, Roberth who is in agreement with discharge today with services from [facility]. ANETTE contacted Germania at [facility] and faxed discharge orders/summary. Discharge Plan: Home with [facility] today.
[2020-07-26 11:46] VITALS: BP 112/63; PULSE 64; TEMP 97.9
--- NOTE | 2020-07-26 14:02 | NUR ---
Discharge instructions reviewed with the patient, instructed to follow up with PCP and Urology as we have scheduled, instructed to finish course of Abx's, scripts for Macrobid and Fluconozole sent to [facility] pharmacy for him, IV removed, leaving with his son, I escorted him out the door by wheelchair
== END 2020-07-26 14:06 | disposition home or self-care (01) | DRG 728 ==
LOC: COL.ER 20:41 → MEDICAL 22:24
PROVIDERS: Emergency Medicine; Hospitalist; Student in an Organized Health Care Education/Training Program; ADMIT Student in an Organized Health Care Education/Training Program
DX: B37.49 Other urogenital candidiasis (principal); N40.0 Benign prostatic hyperplasia without lower urinary tract symptoms; E78.5 Hyperlipidemia, unspecified; K58.1 Irritable bowel syndrome with constipation; K22.70 Barrett's esophagus without dysplasia; Z66 Do not resuscitate; K21.9 Gastro-esophageal reflux disease without esophagitis; J44.9 Chronic obstructive pulmonary disease, unspecified; B37.9 Candidiasis, unspecified; R53.81 Other malaise; R33.9 Retention of urine, unspecified; I11.0 Hypertensive heart disease with heart failure; I50.9 Heart failure, unspecified; I25.10 Atherosclerotic heart disease of native coronary artery without angina pectoris; Z95.1 Presence of aortocoronary bypass graft; Z88.1 Allergy status to other antibiotic agents; Z88.6 Allergy status to analgesic agent; Z88.8 Allergy status to other drugs, medicaments and biological substances; Z87.891 Personal history of nicotine dependence; Z95.810 Presence of automatic (implantable) cardiac defibrillator
CPT/HCPCS: 99223-AI; 99232-AI; 99239; J0692; J1650; J2405; J7030

== ENCOUNTER → 2020-08-08 | Outpatient (CLI) | payer MEDICARE, MEDICAID ==
[~2020-08-08] MED LIST changes: +DIFLUCAN200 MG PO; +MACROBID 1100 MG/CAP PO
[2020-08-08 17:55] LABS: SYNOVIAL FL. MONONUCLEAR 6.4 % (0-75); SYNOVIAL FLUID RBC 4000 /mm3 (0-0); SYNOVIAL FLUID WBC 33636 /mm3 (200-600)
[2020-08-08 18:49] LABS: SYNOVIAL FLUID APPEARANCE CLOUDY; SYNOVIAL FLUID COLOR YELLOW
== END ==
LOC: ZCOL.LAB 17:33
PROVIDERS: Orthopaedic Surgery
DX: M25.561 Pain in right knee (principal)

== ENCOUNTER 2021-01-25 09:25 | Observation (INO) | payer MEDICARE, MEDICAID ==
[~2021-01-25] VITALS: Ht 177.8 cm; Wt 100.0 kg
[2021-01-25 10:05] LABS: BASO # 0.1 K/mm3 (0.0-0.2); BASO % 1.2 % (0.0-2.0); EOS # 0.4 K/mm3 (0.0-0.7); EOS % 5.6 % (0-4.0); GRAN # 4.6 K/mm3 (1.4-6.5); GRAN % 67.4 % (42.2-75.2); HEMATOCRIT 42.7 % (42.0-52.0); HEMOGLOBIN 14.6 g/dl (13.5-18.0); LYMPH # 1.1 K/mm3 (1.2-3.4); LYMPH % 16.9 % (20.0-51.0); MEAN CELL VOLUME 88 fl (80.0-100.0); MEAN CORPUSCULAR HEMOGLOBIN 30 pg (27.0-31.0); MEAN CORPUSCULAR HGB CONC 34 g/dl (33.0-37.0); MEAN PLATELET VOLUME 8.5 fl (7.4-10.4); MONO # 0.6 K/mm3 (0.1-0.6); MONO % 8.6 % (1.7-9.3); PLATELET COUNT 273 K/mm3 (130-400); RED BLOOD COUNT 4.88 M/mm3 (4.20-5.60); REDCELL DISTRIBUTION WIDTH-CV 13.3 % (11.5-14.5)
[2021-01-25 10:13] LABS: ALBUMIN 3.7 gm/dL (3.4-4.8); BILIRUBIN,TOTAL 0.6 mg/dL (0.2-1.2); CALCIUM 9.9 mg/dL (8.4-10.2); CREATININE, serum 0.96 mg/dL (0.72-1.25); POTASSIUM 4.1 mmol/L (3.5-4.5); TOTAL PROTEIN 7.2 gm/dL (6.2-8.1)
[2021-01-25 10:19] LABS: TROPONIN-I 0.017 ng/mL (0.00-0.033)
[2021-01-25 10:46] LABS: PROTHROMBIN TIME 11.3 SECONDS (9.7-12.8)
[2021-01-25 10:48] LABS: PARTIAL THROMBOPLASTIN TIME 27.5 SECONDS (26.0-37.0)
[2021-01-25 11:01] LABS: COLLECTION METHOD CATHETER
[2021-01-25 11:14] LABS: AMORPHOUS CRYSTAL Present /uL; PH 7 (5-8); SQUAMOUS EPITHELIAL None Seen /hpf; URINE APPEARANCE Cloudy; URINE BACTERIA None Seen /hpf; URINE BILIRUBIN Negative (NEGATIVE); URINE BLOOD Negative (NEGATIVE); URINE COLOR Yellow; URINE GLUCOSE Negative (NEGATIVE); URINE KETONE Negative (NEGATIVE); URINE LEUKOCYTE ESTERASE Negative (NEGATIVE); URINE NITRATE Negative (NEGATIVE); URINE PROTEIN(semi-quant) Negative (NEGATIVE); URINE RBC 0-2 /hpf; URINE UROBILINOGEN Negative (NEGATIVE)
--- NOTE | 2021-01-25 17:46 | NUR ---
Admission assessment completed, alert/oriented, vital signs stable, denies any chest pain or discomfort, denies any resp.difficulty or SOA, lungsCTA, heart RRR/paced on tele, his only complaint was he felt "bloated" this morning, says he had no BM today but had one yesterday, patient say he was scheduled for an outpatient heart cath tommorow, I have notified Cardiolgoy of consult, meds/allergies/pharm reviewed with patient, he is a very poor historian however and stated the ER went over meds with his before she left
[2021-01-25 20:35] VITALS: BP 123/77; PULSE 66; TEMP 98.2
--- NOTE | 2021-01-25 21:10 | NUR ---
RT NOT AVAILABLE
[2021-01-26] VITALS (15 sets, daily range): BP systolic 109–144; BP diastolic 57–87; PULSE 59–71; TEMP 96.7–97.8
--- NOTE | 2021-01-26 05:54 | NUR ---
PT REMAINED NPO OF MIDNIGHT. CONSENT SIGNED AND IN CHART FOR HEART CATHERIZATION. ALL QUESTIONS/CONCERNS ANSWERED. PT DENIES N,V,D, PAIN, CHEST DISCOMFORT. CALL LIGHT WITHIN REACH. VSS. 02 ROOM AIR. ALL NEEDS MET THIS NIGHT. CALL LIGHT WITHIN REACH.
[2021-01-26 07:08] LABS: INR 1.1 (0.8-3.0); PROTHROMBIN TIME 12.6 SECONDS (9.7-12.8)
[2021-01-26 07:09] LABS: BASO # 0.1 K/mm3 (0.0-0.2); BASO % 1.4 % (0.0-2.0); EOS # 0.4 K/mm3 (0.0-0.7); EOS % 5.7 % (0-4.0); GRAN % 63.4 % (42.2-75.2); HEMATOCRIT 37.2 % (42.0-52.0); HEMOGLOBIN 12.8 g/dl (13.5-18.0); LYMPH # 1.1 K/mm3 (1.2-3.4); LYMPH % 17.1 % (20.0-51.0); MEAN CELL VOLUME 87 fl (80.0-100.0); MEAN CORPUSCULAR HEMOGLOBIN 30 pg (27.0-31.0); MEAN CORPUSCULAR HGB CONC 34 g/dl (33.0-37.0); MEAN PLATELET VOLUME 8.7 fl (7.4-10.4); MONO # 0.8 K/mm3 (0.1-0.6); MONO % 11.9 % (1.7-9.3); PLATELET COUNT 236 K/mm3 (130-400); REDCELL DISTRIBUTION WIDTH-CV 13.1 % (11.5-14.5)
[2021-01-26 07:11] LABS: PARTIAL THROMBOPLASTIN TIME 27.8 SECONDS (26.0-37.0)
[2021-01-26 07:22] LABS: ALBUMIN 3.1 gm/dL (3.4-4.8); CALCIUM 8.6 mg/dL (8.4-10.2); CHOLESTEROL RISK RATIO 3.3; CREATININE, serum 0.94 mg/dL (0.72-1.25); PHOSPHOROUS 3.8 mg/dL (2.3-4.7); POTASSIUM 3.9 mmol/L (3.5-4.5)
--- NOTE | 2021-01-26 09:39 | NUR ---
Assessment completed, alert/oriented, vital signs stable, denies any chest pain or discomfort, reports still feeling a little bloated / but that this is "normal with his IBS", abd is soft and BS+, heart RRR/ distal pulses are palpable, lungs CTA/no resp.difficulty, he is scheduled for a heart cath later today, I jose luis discussed plan of care with patient and his family over the phone, he is NPO and consent is signed, he denies other needs at this time
--- NOTE | 2021-01-26 10:51 | NUR ---
ANETTE met with the patient to discuss discharge plan. The patient lives in [place] with his (Tiffani, ph#[phone]) and son (Roberth, ph#[phone]). He reports independence with ADLs and has a cane. He states that he has home health services for shelter from [facility]. ANETTE notified and confirmed services with Brandon at [facility]. ANETTE faxed updates to [facility]. The patient's PCP is Dr. Hong Ramírez and he [facility] his [facility]. He reports no difficulties obtaining his meds. The patient's DPOA-HC is in EMR and it designates his , son (Roberth), and daughter (Kamini Akers). Kamini lives in [place]. The patient plans to return home with his family and resume home health services from [facility] upon discharge. SW to continue to follow. *Discharge plan: home with family and home health*
--- NOTE | 2021-01-26 12:30 | NUR ---
Patient is going down to warehouse general laborer at this time, consent signed, has been NPO and his family is present
--- NOTE | 2021-01-26 18:18 | NUR ---
Pt ambulated without any bleeding to R femoral cath site. Discussed POC with patient and about D/C. No needs at this time.
[2021-01-26] MEDS ORDERED: ASPIRIN E.C. 8181 MG PO (18:46)
--- NOTE | 2021-01-26 18:58 | NUR ---
PATIENT STATES "HE DOESNT NEED A BREATHING TREATMENT" REFUSES AT THIS TIME
--- NOTE | 2021-01-26 19:54 | NUR ---
PT DISCHARGE ORDERS RECEIVED. PT PROVIDED DISCHARGE PACKET AND INFORMATION SHEETS. PT VERBALIZES UNDERSTANDING OF THE DISCHARGE INSTRUCTIONS. ALL QUESTIONS/CONCERNS ANSWERED. PT DISCHARGE PAPERWORK SIGNED AND PLACED IN PTS CHART. PT IV INT DC'D BY PREVIOUS SHIFT NURSE. TELE BOX DC'D AND GIVED TO CHARGE NURSE. PT ESCORTED OUT THE BLDG ALONG WITH AT 1946 VIA WHEELCHAIR BY MEDICAL STAFF. ALL BELONGINGS PLACED IN PT'S BAG. ALL NEEDS MET.
== END 2021-01-26 19:46 | disposition home or self-care (01) ==
LOC: COL.ER 09:25 → MEDICAL 12:11
PROVIDERS: Nurse Practitioner; Student in an Organized Health Care Education/Training Program; ADMIT Internal Medicine
DX: I25.10 Atherosclerotic heart disease of native coronary artery without angina pectoris (principal); J44.9 Chronic obstructive pulmonary disease, unspecified; R33.9 Retention of urine, unspecified; I13.0 Hypertensive heart and chronic kidney disease with heart failure and stage 1 through stage 4 chronic kidney disease, or unspecified chronic kidney disease; I50.20 Unspecified systolic (congestive) heart failure; N18.9 Chronic kidney disease, unspecified; Z20.822 Contact with and (suspected) exposure to COVID-19; K21.9 Gastro-esophageal reflux disease without esophagitis; K44.9 Diaphragmatic hernia without obstruction or gangrene; K22.70 Barrett's esophagus without dysplasia; K58.9 Irritable bowel syndrome, unspecified; R53.81 Other malaise; E87.1 Hypo-osmolality and hyponatremia; N40.1 Benign prostatic hyperplasia with lower urinary tract symptoms; R33.8 Other retention of urine; E78.5 Hyperlipidemia, unspecified; Z79.899 Other long term (current) drug therapy; Z95.810 Presence of automatic (implantable) cardiac defibrillator; Z95.1 Presence of aortocoronary bypass graft
CPT/HCPCS: C1760; C1894; G0378; J1644; J3010; J3480; J7030

== ENCOUNTER → 2021-04-09 | Outpatient (CLI) | payer MEDICARE, MEDICAID ==
[2021-04-09 13:57] LABS: CREATININE, serum 0.98 mg/dL (0.72-1.25)
== END ==
LOC: COL.LAB 12:43
DX: K59.00 Constipation, unspecified (principal)

== ENCOUNTER 2021-05-21 16:08 | Emergency (ER) | payer MEDICARE, MEDICAID ==
[~2021-05-21] VITALS: Ht 177.8 cm; Wt 95.5 kg
[2021-05-21 16:58] VITALS: TEMP 98.6
[2021-05-21] MEDS ORDERED: TRIAMCINOLONE A15 G1 TP (17:45)
[2021-05-21 18:40] VITALS: BP 141/73; PULSE 72
== END 2021-05-21 18:40 | disposition home or self-care (01) ==
LOC: COL.ER 16:08
DX: R21 Rash and other nonspecific skin eruption (principal); I10 Essential (primary) hypertension; I25.10 Atherosclerotic heart disease of native coronary artery without angina pectoris; Z88.8 Allergy status to other drugs, medicaments and biological substances; Z79.82 Long term (current) use of aspirin; Z79.899 Other long term (current) drug therapy

== ENCOUNTER 2021-07-11 11:19 | Observation (INO) | payer MEDICARE, MEDICAID ==
[~2021-07-11] VITALS: Wt 100.0 kg
[~2021-07-11 11:19] MED LIST changes: +TRIAMCINOLONE A15 G1 TP
[2021-07-11 12:17] LABS: BASO # 0.1 K/mm3 (0.0-0.2); BASO % 0.8 % (0.0-2.0); EOS # 0.2 K/mm3 (0.0-0.7); EOS % 1.8 % (0.0-4.0); GRAN # 8.3 K/mm3 (1.4-6.5); GRAN % 78.7 % (42.2-75.2); LYMPH # 1.1 K/mm3 (1.2-3.4); LYMPH % 10.4 % (20.0-51.0); MEAN CELL VOLUME 88 fl (80.0-100.0); MEAN CORPUSCULAR HEMOGLOBIN 30 pg (27-31); MEAN CORPUSCULAR HGB CONC 34 g/dl (33.0-37.0); MEAN PLATELET VOLUME 8.5 fl (7.4-10.4); MONO # 0.8 K/mm3 (0.1-0.6); MONO % 7.9 % (1.7-9.3); PLATELET COUNT 213 K/mm3 (130-400); RED BLOOD COUNT 4.33 M/mm3 (4.20-5.60); REDCELL DISTRIBUTION WIDTH-CV 13.9 % (11.5-14.5)
[2021-07-11 12:35] LABS: ALBUMIN 3.5 gm/dL (3.4-4.8); BILIRUBIN,TOTAL 0.8 mg/dL (0.2-1.2); C-REACTIVE PROTEIN 3.49 mg/dL (0.00-0.50); CALCIUM 8.8 mg/dL (8.4-10.2); CREATININE, serum 0.88 mg/dL (0.72-1.25); POTASSIUM 4.5 mmol/L (3.5-4.5); TOTAL PROTEIN 6.5 gm/dL (6.2-8.1)
[2021-07-11 12:36] LABS: COLLECTION METHOD CLEAN CATCH
[2021-07-11 12:43] LABS: AMORPHOUS CRYSTAL Present (NOT PRESENT); PH 8 (5-8); SQUAMOUS EPITHELIAL None Seen /hpf (0-10); URINE APPEARANCE Cloudy (CLEAR/HAZY); URINE BACTERIA None Seen /hpf (NONE SEEN); URINE BILIRUBIN Negative (NEGATIVE); URINE BLOOD Negative (NEGATIVE); URINE COLOR Yellow (YELLOW); URINE GLUCOSE Negative (NEGATIVE); URINE KETONE Negative (NEGATIVE); URINE LEUKOCYTE ESTERASE Negative (NEGATIVE); URINE NITRATE Negative (NEGATIVE); URINE PROTEIN(semi-quant) Negative (NEGATIVE); URINE RBC 0-2 /hpf (0-2); URINE UROBILINOGEN Negative (NEGATIVE)
[2021-07-11 15:40] VITALS: BP 132/80; PULSE 67; TEMP 98.3
--- NOTE | 2021-07-11 19:00 | NUR ---
PT DOES NOT HAVE IV ACCESS AT THIS TIME. THE IV THAT WAS PLACED IN THE ED HAS BEEN REMOVED BY THE PATIENT. THE PATIENT IS AN EXTREMELY TO ATTEMPT, WILL CALL ACTUARIAL ANALYST TO OBTAIN NEW IV.
[2021-07-11 19:11] LABS: HEMATOCRIT 35.5 % (42.0-52.0)
[2021-07-11 19:35] VITALS: BP 120/107; BP 121/68; PULSE 76; TEMP 98.3
--- NOTE | 2021-07-11 20:00 | NUR ---
PATIENT IS A&O. VSS. AMBULATING INDEPENDENTLY BACK TO BED FROM BATHROOM. PATIENT IV FROM ER WAS BAD AND DAY SHIFT ATTEMPTED X2 BUT UNABLE TO GET IV STARTED. PLACED 22 GAUZE IV INTO RIGHT WRIST ON ATTEMPT. IV FLUIDS INFUSING PER ORDERS. PATIENT REPORTS NO BLOODY STOOLS TODAY, VOIDING SUFFICIENT AMOUNTS. TOLERATING CLEARS. HS MEDS GIVEN. CALLED STRATEGIC BUSINESS DEVELOPMENT FOR HS EYE DROPS, GIVEN. HEAD TO TOE ASSESSMENT COMPLETE. DNR STATUS. SCD'S CURRENTLY OFF AT THIS TIME. NO OTHER NEEDS. CALL LIGHT IN REACH.
[2021-07-11 23:36] VITALS: BP 107/64; PULSE 77; TEMP 97.8
[2021-07-12 04:43] VITALS: BP 99/54; PULSE 53; TEMP 98.2
[2021-07-12 06:34] LABS: BASO # 0.1 K/mm3 (0.0-0.2); EOS # 0.3 K/mm3 (0.0-0.7); EOS % 3.7 % (0.0-4.0); GRAN # 4.6 K/mm3 (1.4-6.5); GRAN % 67.3 % (42.2-75.2); HEMOGLOBIN 10.5 g/dl (13.5-18.0); LYMPH # 1.1 K/mm3 (1.2-3.4); LYMPH % 16.3 % (20.0-51.0); MEAN CELL VOLUME 90 fl (80.0-100.0); MEAN CORPUSCULAR HEMOGLOBIN 30 pg (27-31); MEAN CORPUSCULAR HGB CONC 33 g/dl (33.0-37.0); MEAN PLATELET VOLUME 8.9 fl (7.4-10.4); MONO # 0.8 K/mm3 (0.1-0.6); MONO % 11.1 % (1.7-9.3); PLATELET COUNT 185 K/mm3 (130-400); RED BLOOD COUNT 3.53 M/mm3 (4.20-5.60)
[2021-07-12 06:44] LABS: HEMATOCRIT 31.7 % (42.0-52.0)
[2021-07-12 06:46] LABS: CALCIUM 7.9 mg/dL (8.4-10.2); CREATININE, serum 0.87 mg/dL (0.72-1.25); MAGNESIUM 2.2 mg/dL (1.6-2.6); POTASSIUM 4.1 mmol/L (3.5-4.5)
[2021-07-12 08:33] VITALS: BP 102/59; PULSE 75; TEMP 98.1
--- NOTE | 2021-07-12 10:31 | NUR ---
Initial visit; Patient thanked Parts Delivery Driver for offering God's blessings and wishing him well.
--- NOTE | 2021-07-12 10:44 | NUR ---
Patient laying in bed upon entering the room, Danna CORDERO, present. Patient c/o feeling full of gas. Otherwise, patient denies any concerns. Call light is w/in reach. Patient requested help w/ ordering lunch.
[2021-07-12 11:29] VITALS: BP 93/64; PULSE 60; TEMP 98.2
--- NOTE | 2021-07-12 13:08 | NUR ---
farmworker grain met with patient to discuss discharge plan. Patient currently lives in [place] with his Tiffani ([phone]). He reports to being " kind of" independent and the his minimally helps with his ADL's, like getting dressed. He states that he does not use any DME to assist with mobility unless he is outside, then he uses a cane. He reports to no oxygen needs. PCP is Dr. Ramírez and he utilizes [facility] for medications with no cost difficulty. Patient does have a DPOA-HC listing his and his son Roberth which is located in his EMR. Patient states that he is planning on returning home once medically ready and that his son would be picking him up. Patient then stated that he was hungry and would like to order dinner. I informed the patient's RN and she is going to order him lunch. Discharge plan: Home with family
[2021-07-12 16:10] VITALS: BP 94/65; PULSE 72; TEMP 98.1
--- NOTE | 2021-07-12 16:35 | NUR ---
Patient c/o gas pain in his abdomen; Danna called for medication, bowel regimen ordered. Patient given warm prune juice and PRN miralax.
[2021-07-12 20:34] VITALS: BP 114/68; PULSE 67; TEMP 98.2
[2021-07-13 00:20] VITALS: BP 89/57; PULSE 74; TEMP 98.1
[2021-07-13 04:06] VITALS: BP 108/66; PULSE 81; TEMP 97.6
--- NOTE | 2021-07-13 05:15 | NUR ---
RESTED THROUGH THE NIGHT WITHOUT INCIDENT. NEEDS MET. CALL LIGHT WI REACH.
[2021-07-13 06:51] LABS: BASO # 0.1 K/mm3 (0.0-0.2); BASO % 1.1 % (0.0-2.0); EOS # 0.2 K/mm3 (0.0-0.7); EOS % 3.2 % (0.0-4.0); GRAN # 4.3 K/mm3 (1.4-6.5); GRAN % 67.9 % (42.2-75.2); LYMPH # 1.1 K/mm3 (1.2-3.4); LYMPH % 16.6 % (20.0-51.0); MEAN CELL VOLUME 87 fl (80.0-100.0); MEAN CORPUSCULAR HGB CONC 35 g/dl (33.0-37.0); MEAN PLATELET VOLUME 9.2 fl (7.4-10.4); MONO # 0.7 K/mm3 (0.1-0.6); MONO % 10.6 % (1.7-9.3); PLATELET COUNT 193 K/mm3 (130-400); RED BLOOD COUNT 3.26 M/mm3 (4.20-5.60); REDCELL DISTRIBUTION WIDTH-CV 13.8 % (11.5-14.5)
[2021-07-13 06:55] LABS: CALCIUM 7.6 mg/dL (8.4-10.2); CREATININE, serum 0.83 mg/dL (0.72-1.25); POTASSIUM 3.9 mmol/L (3.5-4.5)
[2021-07-13 07:17] LABS: HEMATOCRIT 28.5 % (42.0-52.0); HEMOGLOBIN 9.9 g/dl (13.5-18.0); MEAN CORPUSCULAR HEMOGLOBIN 30 pg (27-31)
[2021-07-13 07:36] VITALS: BP 122/83; PULSE 73; TEMP 98.2
[2021-07-13 11:07] VITALS: BP 120/84; PULSE 69; TEMP 98.2
--- NOTE | 2021-07-13 13:23 | NUR ---
First visit from the work counselor. No needs right now.
--- NOTE | 2021-07-13 14:34 | NUR ---
Discharge instructions reviewed with pt and son. Questions invited and answered. Pt verbalizes understanding.
--- NOTE | 2021-07-13 14:45 | NUR ---
Pt escorted to private vehicle by QUINN
== END 2021-07-13 14:45 | disposition home or self-care (01) ==
LOC: COL.ER 11:19 → MEDICAL 14:55 → EDBEDREQ 15:07 → MEDICAL 07-13 14:45
PROVIDERS: Nurse Practitioner; Physician Assistant; ADMIT Internal Medicine
DX: K92.2 Gastrointestinal hemorrhage, unspecified (principal); R10.9 Unspecified abdominal pain; N40.0 Benign prostatic hyperplasia without lower urinary tract symptoms; E78.5 Hyperlipidemia, unspecified; I10 Essential (primary) hypertension; K58.9 Irritable bowel syndrome, unspecified; K22.70 Barrett's esophagus without dysplasia; K21.9 Gastro-esophageal reflux disease without esophagitis; K44.9 Diaphragmatic hernia without obstruction or gangrene; I11.0 Hypertensive heart disease with heart failure; I50.9 Heart failure, unspecified; I25.10 Atherosclerotic heart disease of native coronary artery without angina pectoris; Z95.1 Presence of aortocoronary bypass graft; Z79.899 Other long term (current) drug therapy
CPT/HCPCS: 99232-AI; C9113; G0378; J2405; J3010; J7030; Q9967

== ENCOUNTER → 2021-10-03 | Outpatient (CLI) | payer MEDICARE, MEDICAID | LOC: ZCOL.LAB 12:04 | DX: I50.22 Chronic systolic (congestive) heart failure (principal) ==

== ENCOUNTER 2021-10-07 16:06 | Emergency (ER) | payer MEDICARE, MEDICAID ==
[~2021-10-07] VITALS: Ht 177.8 cm; Wt 97.3 kg
[2021-10-07 16:52] LABS: BASO # 0.1 K/mm3 (0.0-0.2); BASO % 1.5 % (0.0-2.0); EOS # 0.2 K/mm3 (0.0-0.7); EOS % 2.8 % (0.0-4.0); GRAN # 4.7 K/mm3 (1.4-6.5); GRAN % 63.4 % (42.2-75.2); HEMATOCRIT 38.9 % (42.0-52.0); HEMOGLOBIN 12.7 g/dl (13.5-18.0); LYMPH # 1.5 K/mm3 (1.2-3.4); LYMPH % 19.9 % (20.0-51.0); MEAN CELL VOLUME 81 fl (80.0-100.0); MEAN CORPUSCULAR HEMOGLOBIN 26 pg (27-31); MEAN CORPUSCULAR HGB CONC 33 g/dl (33.0-37.0); MEAN PLATELET VOLUME 8.5 fl (7.4-10.4); MONO # 0.9 K/mm3 (0.1-0.6); MONO % 12.1 % (1.7-9.3); PLATELET COUNT 268 K/mm3 (130-400); RED BLOOD COUNT 4.82 M/mm3 (4.20-5.60)
[2021-10-07 17:11] LABS: ALANINE AMINOTRANSFERASE 13 U/L (0-55); ALBUMIN 3.8 gm/dL (3.4-4.8); ALKALINE PHOSPHATASE 60 U/L (40-150); ANION GAP 11 mmol/L (7-16); AST,SGOT 15 U/L (5-34); BILIRUBIN,TOTAL 0.4 mg/dL (0.2-1.2); BLOOD UREA NITROGEN 17 mg/dL (8-26); CARBON DIOXIDE 24 mmol/L (23-31); CHLORIDE 99 mmol/L (98-107); CREATININE, serum 0.91 mg/dL (0.72-1.25); GLUCOSE 105 mg/dL (70-99); LIPASE 14 U/L (8-78); POTASSIUM 4.3 mmol/L (3.5-4.5); SODIUM 134 mmol/L (136-145); TOTAL PROTEIN 7.2 gm/dL (6.2-8.1)
[2021-10-07 17:20] LABS: TROPONIN-I < 0.010 ng/mL (0.00-0.033)
[2021-10-07 20:47] VITALS: BP 162/97; PULSE 75; TEMP 98.2
== END 2021-10-07 20:48 | disposition home or self-care (01) ==
LOC: COL.ER 16:06
PROVIDERS: Emergency Medicine
DX: R07.89 Other chest pain (principal); Z95.1 Presence of aortocoronary bypass graft

== ENCOUNTER 2023-04-26 12:09 | Emergency (ER) | payer MEDICARE, MEDICAID ==
[~2023-04-26] VITALS: Ht 177.8 cm; Wt 97.7 kg
[~2023-04-26 12:09] MED LIST changes: +COSOPT 2%-0.5%10 ML OU; +CREON 36000 PO; +CRESTOR5 MG PO; +ELIQUIS 5MG PO; +ENTRESTO 24 MG1 EACH PO; +FLONASEALLERGY NS; +LUMIGAN 5 ML5 M1 OP; +MIRALAX PA17 GM/Dose PO; +MOTEGRITY2 MG PO; +MOXEZA 3 ML3 ML OP; +NAPROSYN500 MG PO; +SEPTRA DS 8001 TAB PO; +TRAVATAN Z 5 ML5 ML OD; +TYLENOL 325MG325 MG PO
[2023-04-26 12:19] VITALS: TEMP 98.1
[2023-04-26 12:54] LABS: COLLECTION METHOD CLEAN CATCH
[2023-04-26 13:13] LABS: BASO # 0.1 K/mm3 (0.0-0.2); BASO % 1.1 % (0.0-2.0); EOS # 0.2 K/mm3 (0.0-0.7); EOS % 2.9 % (0.0-4.0); GRAN # 5.6 K/mm3 (1.4-6.5); GRAN % 67.8 % (42.2-75.2); HEMOGLOBIN 15.6 g/dl (13.5-18.0); LYMPH # 1.3 K/mm3 (1.2-3.4); LYMPH % 16.2 % (20.0-51.0); MEAN CELL VOLUME 90 fl (80.0-100.0); MEAN CORPUSCULAR HEMOGLOBIN 32 pg (27-31); MEAN CORPUSCULAR HGB CONC 36 g/dl (33.0-37.0); MEAN PLATELET VOLUME 9.1 fl (7.4-10.4); MONO % 11.8 % (1.7-9.3); PLATELET COUNT 242 K/mm3 (130-400); RED BLOOD COUNT 4.91 M/mm3 (4.20-5.60); REDCELL DISTRIBUTION WIDTH-CV 13.5 % (11.5-14.5)
[2023-04-26 13:18] LABS: PH 7.5 (5.0-8.5); SQUAMOUS EPITHELIAL 0-2 /hpf (0-10); URINE APPEARANCE Clear (CLEAR/HAZY); URINE BLOOD Negative (NEGATIVE); URINE COLOR Yellow (YELLOW); URINE GLUCOSE Negative (NEGATIVE); URINE KETONE Negative (NEGATIVE); URINE NITRATE Negative (NEGATIVE); URINE PROTEIN(semi-quant) Negative (NEGATIVE); URINE RBC 0-2 /hpf (0-2); URINE UROBILINOGEN 0.2 E.U/dL (0.2-1.0)
[2023-04-26 13:19] LABS: AMORPHOUS CRYSTAL Present (NOT PRESENT)
[2023-04-26 13:26] LABS: ALBUMIN 3.8 gm/dL (3.4-4.8); BILIRUBIN,TOTAL 0.5 mg/dL (0.2-1.2); CALCIUM 10.7 mg/dL (8.4-10.2); CREATININE, serum 1.16 mg/dL (0.72-1.25); POTASSIUM 4.4 mmol/L (3.5-4.5); TOTAL PROTEIN 7.6 gm/dL (6.2-8.1)
[2023-04-26] MEDS ORDERED: NS 100 ML IV SCH (14:15)
[2023-04-26] MEDS ORDERED: Iohexol 300 - 100 ML VIAL IV ONE (14:15)
[2023-04-26] MEDS ORDERED: DOXYCYCLINE 10100 MG PO (14:51)
[2023-04-26 15:16] VITALS: BP 161/93; PULSE 79
== END 2023-04-26 15:22 | disposition home or self-care (01) ==
LOC: COL.ER 12:09
PROVIDERS: Physician Assistant
DX: J40 Bronchitis, not specified as acute or chronic (principal); R35.0 Frequency of micturition; R10.32 Left lower quadrant pain; Z88.1 Allergy status to other antibiotic agents
CPT/HCPCS: Q9967

== ENCOUNTER 2023-05-24 10:19 | Emergency (ER) | payer MEDICARE, MEDICAID ==
[~2023-05-24] VITALS: Ht 25.4 cm; Wt 98.2 kg
[~2023-05-24 10:19] MED LIST changes: +DOXYCYCLINE 10100 MG PO
[2023-05-24 10:28] VITALS: TEMP 98
[2023-05-24 10:51] LABS: BASO # 0.1 K/mm3 (0.0-0.2); EOS # 0.2 K/mm3 (0.0-0.7); EOS % 1.9 % (0.0-4.0); GRAN # 6.9 K/mm3 (1.4-6.5); GRAN % 73.8 % (42.2-75.2); HEMATOCRIT 43.2 % (42.0-52.0); HEMOGLOBIN 14.5 g/dl (13.5-18.0); LYMPH # 0.8 K/mm3 (1.2-3.4); LYMPH % 8.7 % (20.0-51.0); MEAN CELL VOLUME 89 fl (80.0-100.0); MEAN CORPUSCULAR HEMOGLOBIN 30 pg (27-31); MEAN CORPUSCULAR HGB CONC 34 g/dl (33.0-37.0); MEAN PLATELET VOLUME 8.5 fl (7.4-10.4); MONO # 1.3 K/mm3 (0.1-0.6); MONO % 14.2 % (1.7-9.3); PLATELET COUNT 249 K/mm3 (130-400); RED BLOOD COUNT 4.83 M/mm3 (4.20-5.60); REDCELL DISTRIBUTION WIDTH-CV 13.2 % (11.5-14.5)
[2023-05-24 11:04] LABS: ALANINE AMINOTRANSFERASE 19 U/L (0-55); ALBUMIN 3.2 gm/dL (3.4-4.8); ALKALINE PHOSPHATASE 58 U/L (40-150); ANION GAP 10 mmol/L (7-16); AST,SGOT 26 U/L (5-34); BILIRUBIN,TOTAL 0.6 mg/dL (0.2-1.2); BLOOD UREA NITROGEN 20 mg/dL (8-26); C-REACTIVE PROTEIN 11.13 mg/dL (0.00-0.50); CALCIUM 9.8 mg/dL (8.4-10.2); CARBON DIOXIDE 27 mmol/L (23-31); CHLORIDE 99 mmol/L (98-107); CREATININE, serum 1.07 mg/dL (0.72-1.25); GLUCOSE 121 mg/dL (70-99); LIPASE < 7 U/L (8-78); POTASSIUM 4.6 mmol/L (3.5-4.5); SODIUM 136 mmol/L (136-145); TOTAL PROTEIN 7.1 gm/dL (6.2-8.1)
[2023-05-24 11:21] LABS: COLLECTION METHOD CLEAN CATCH
[2023-05-24 11:31] LABS: URINE APPEARANCE TURBID (CLEAR/HAZY); URINE BLOOD NEGATIVE (NEGATIVE); URINE COLOR YELLOW (YELLOW); URINE GLUCOSE NEGATIVE (NEGATIVE); URINE KETONE NEGATIVE (NEGATIVE); URINE NITRATE NEGATIVE (NEGATIVE); URINE PROTEIN(semi-quant) TRACE (NEGATIVE); URINE UROBILINOGEN 0.2 E.U/dL (0.2-1.0)
[2023-05-24] MEDS ORDERED: NS 100 ML IV SCH (13:21)
[2023-05-24] MEDS ORDERED: Iohexol 300 - 100 ML VIAL IV ONE (13:21)
[2023-05-24 14:32] VITALS: BP 133/91; PULSE 85
[2023-05-27] VITALS (267 sets, daily range): O2SAT 74–100
== END 2023-05-24 14:32 | disposition home or self-care (01) ==
LOC: COL.ER 10:19
PROVIDERS: Nurse Practitioner
DX: R10.84 Generalized abdominal pain (principal); G89.29 Other chronic pain; Z87.19 Personal history of other diseases of the digestive system
CPT/HCPCS: Q9967

== ENCOUNTER 2023-05-26 11:36 | Inpatient (IN) | payer MEDICARE, MEDICAID ==
[2023-05-26] VITALS (484 sets, daily range): BP systolic 123–139; BP diastolic 68–89; PULSE 80–83; TEMP 99; O2SAT 76–100
[~2023-05-26] VITALS: Ht 177.8 cm; Wt 98.7 kg
[2023-05-26] MEDS ORDERED: Ondansetron 4 MG/2 ML VIAL IV ONE (12:00)
[2023-05-26] MEDS ORDERED: Iohexol 300 - 100 ML VIAL IV ONE (12:16)
[2023-05-26] MEDS ORDERED: NS 100 ML IV SCH (12:16)
[2023-05-26 12:22] LABS: BASO # 0.1 K/mm3 (0.0-0.2); BASO % 0.7 % (0.0-2.0); EOS # 0.1 K/mm3 (0.0-0.7); EOS % 1.1 % (0.0-4.0); GRAN # 8.8 K/mm3 (1.4-6.5); GRAN % 83.8 % (42.2-75.2); HEMATOCRIT 41.1 % (42.0-52.0); HEMOGLOBIN 14.2 g/dl (13.5-18.0); LYMPH # 0.7 K/mm3 (1.2-3.4); LYMPH % 6.2 % (20.0-51.0); MEAN CELL VOLUME 88 fl (80.0-100.0); MEAN CORPUSCULAR HEMOGLOBIN 30 pg (27-31); MEAN CORPUSCULAR HGB CONC 35 g/dl (33.0-37.0); MEAN PLATELET VOLUME 8.8 fl (7.4-10.4); MONO # 0.8 K/mm3 (0.1-0.6); MONO % 7.6 % (1.7-9.3); PLATELET COUNT 270 K/mm3 (130-400); RED BLOOD COUNT 4.69 M/mm3 (4.20-5.60); REDCELL DISTRIBUTION WIDTH-CV 13.2 % (11.5-14.5)
[2023-05-26 12:39] LABS: ARTERIAL BLD GAS O2 SATURATION 96.6 % (92-100); ARTERIAL BLD GAS TCO2 CT 27.3; ARTERIAL BLOOD GAS BASE EXCESS 1.4 (-2-2); ARTERIAL BLOOD GAS PCO2 41.1 mmHg (35-45); ARTERIAL BLOOD GAS PO2 86.7 mmHg (80-100); ARTERIAL BLOOD GAS pH 7.42 (7.35-7.45)
[2023-05-26 12:52] LABS: TROPONIN-I 0.031 ng/mL (0.00-0.033)
[2023-05-26 12:54] LABS: BILIRUBIN,TOTAL 0.7 mg/dL (0.2-1.2); CALCIUM 9.6 mg/dL (8.4-10.2); CREATININE, serum 0.9 mg/dL (0.72-1.25); POTASSIUM 4.3 mmol/L (3.5-4.5); TOTAL PROTEIN 6.8 gm/dL (6.2-8.1)
[2023-05-26] MEDS ORDERED: cefTRIAXone 1 G in Water For Injection,Sterile 10 ML IV ONE (13:00)
[2023-05-26] MEDS ORDERED: Doxycycline Monohydrate 100 MG CAP PO ONE (13:00)
[2023-05-26 13:01] LABS: COLLECTION METHOD CLEAN CATCH
[2023-05-26 13:09] LABS: URINE APPEARANCE TURBID (CLEAR/HAZY); URINE BLOOD NEGATIVE (NEGATIVE); URINE COLOR YELLOW (YELLOW); URINE GLUCOSE NEGATIVE (NEGATIVE); URINE KETONE NEGATIVE (NEGATIVE); URINE NITRATE NEGATIVE (NEGATIVE); URINE PROTEIN(semi-quant) 1+ (NEGATIVE); URINE UROBILINOGEN 0.2 E.U/dL (0.2-1.0)
[2023-05-26] MEDS ORDERED: NS 1,000 ML IV ONE (13:15)
[2023-05-26] MEDS ORDERED: Albuterol/Ipratropium 3 MG-0.5 MG/3 ML Neb Soln IH PRN (14:15)
[2023-05-26] MEDS ORDERED: Furosemide 20 MG TAB PO SCH (16:57)
[2023-05-26] MEDS ORDERED: Mag/Al Hydrox/Simeth Susp 30 ML CUP PO PRN (17:15)
[2023-05-26] MEDS ORDERED: dexAMETHasone 10 MG/ML VIAL IV SCH (17:30)
[2023-05-26] MEDS ORDERED: Formoterol 20 MCG,Budesonide 0.5 MG IH SCH (19:00)
[2023-05-26] MEDS ORDERED: Doxycycline Monohydrate 100 MG CAP PO SCH (19:00)
[2023-05-26] MEDS ORDERED: Albuterol/Ipratropium 3 MG-0.5 MG/3 ML Neb Soln IH SCH (20:00)
[2023-05-26] MEDS ORDERED: Brimonidine 0.2% Ophth Soln 5 ML BOTTLE OP SCH (21:00)
[2023-05-26] MEDS ORDERED: [UNRECOGNIZED DRUG - OTHER] OP SCH (21:00)
[2023-05-26] MEDS ORDERED: Famotidine 20 MG TAB PO SCH (21:00)
[2023-05-26] MEDS ORDERED: BIMATOPROST OP SCH (21:00)
[2023-05-26] MEDS ORDERED: Latanoprost 0.005% Ophth Soln 2.5 ML BOTTLE OP SCH (21:00)
[2023-05-26] MEDS ORDERED: Rosuvastatin 5 MG **** subs to Atorvastatin 10 MG PO SCH (21:00)
[2023-05-26] MEDS ORDERED: Atorvastatin 10 MG TAB PO SCH (21:00)
--- NOTE | 2023-05-26 23:49 | NUR ---
PT RESTING IN CHAIR WITH CHEST RISE. VITALS WNL. CALL LIGHT IN REACH. PLAN OF CARE TO CONTINUE.
[2023-05-27] VITALS (158 sets, daily range): BP systolic 109–134; BP diastolic 72–90; PULSE 60–84; TEMP 97.6–98.9; O2SAT 81–99
[2023-05-27 05:15] LABS: HEMATOCRIT 38.3 % (42.0-52.0); HEMOGLOBIN 13.4 g/dl (13.5-18.0); MEAN CELL VOLUME 87 fl (80.0-100.0); MEAN CORPUSCULAR HEMOGLOBIN 30 pg (27-31); MEAN CORPUSCULAR HGB CONC 35 g/dl (33.0-37.0); MEAN PLATELET VOLUME 8.6 fl (7.4-10.4); PLATELET COUNT 243 K/mm3 (130-400); RED BLOOD COUNT 4.41 M/mm3 (4.20-5.60); REDCELL DISTRIBUTION WIDTH-CV 13.2 % (11.5-14.5)
[2023-05-27 05:41] LABS: CALCIUM 8.6 mg/dL (8.4-10.2); POTASSIUM 4.8 mmol/L (3.5-4.5)
[2023-05-27 05:43] LABS: LYMPHOCYTE 5 % (20.0-51.0); NEUTROPHILS 94 % (42.0-75.2); PLATELET ESTIMATE NORMAL (NORMAL)
--- NOTE | 2023-05-27 07:40 | NUR ---
RECEIVED REPORT FROM NIGHTSHIFT RNANIVAL. PATIENT RESTING IN BED WITH EYES CLOSED AT THIS TIME. BED IN A LOW POSITION. CALL LIGHT WITHIN REACH.
[2023-05-27] MEDS ORDERED: Dorzolamide/Timolol 2-0.5% Ophth Soln 10 ML BOTTLE OP SCH (09:00)
[2023-05-27] MEDS ORDERED: Pancrelipase DR CAP (10,500 Units Lipase) PO PRN (10:15)
[2023-05-27] MEDS ORDERED: Polyethylene Glycol 3350 17 GM PDS PO SCH (10:17)
--- NOTE | 2023-05-27 10:30 | NUR ---
casino gaming worker was notified patient will be moving to the medical floor today. SW requested PT/OT evaluations, Dr. Moncada put in the orders for PT/OT to evaluate. casino gaming worker and SW Student met with patient to discuss discharge planning. Patient reports he lives in [place] with his , Tiffani, P# [phone], and son, Roberth, P# [phone]. PCP is Dr. Montero, pharmacy is [facility]. No issues affording medications. DPOA-HC is Kamini Nixon Edgar. DME is a cane but he reports not using it often. Patient is not on oxygen at baseline but is currently requiring it during the hospital stay. Patient reports he is normally independent with ADLS. Roberth transports patient to and from appointments. Discharge plan: TBD
[2023-05-27] MEDS ORDERED: Pancrelipase DR CAP (10,500 Units Lipase) PO SCH (12:00)
[2023-05-27] MEDS ORDERED: cefTRIAXone 2 G in Water For Injection,Sterile 20 ML IV SCH (13:30)
--- NOTE | 2023-05-27 13:57 | NUR ---
REPORT CALLED TO AIDA SANCHEZ ON MEDICAL FLOOR. PATIENT TRANSFERRED VIA WHEELCHAIR TO ROOM 356.
--- NOTE | 2023-05-27 16:12 | NUR ---
Patient transferred to unit around 1400. Transferred x1 assist from wheelchair to recliner with walker and gaitbelt. Gait unsteady. Patient on 5L via high flow nasal cannula. Skin is intact with scattered bruising noted to upper extremities. +2 pitting edema noted to lower legs. Patient denies pain. 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 and son at bedside. Call light within reach, all needs met at this time.
--- NOTE | 2023-05-27 16:18 | NUR ---
Patient worked with PT/OT and ambulated from bed to bathroom. Per PT, patient's SpO2 decreased into 70s during exertion. O2 increased to 6L on highflow nasal cannula and SpO2 stabilized into 90s. Patient in bed with bed alarm on and call light within reach.
[2023-05-27] MEDS ORDERED: guaiFENesin/Dextromethorphan Oral Soln 200-20 MG/10 ML UD PO PRN (23:45)
[2023-05-28] VITALS (13 sets, daily range): BP systolic 126–158; BP diastolic 69–88; PULSE 76–88; TEMP 97.4–98.6
--- NOTE | 2023-05-28 01:32 | NUR ---
Pt lying in bed, alert and oriented x4. pt denies chest pain and shortness of breath. IV in LW is patent, site is clean dry and intact. BLE +1 pitting edema, scattered bruising of extremities noted. pt has no further needs, questions or concerns at this time. pt reports feeling some abd discomfort, maalox given. 2300- CONSUELO Garcia notified of pt request for something for cough, robitussin order placed. fall precautions in place, call light within reach. will continue to monitor.
[2023-05-28] MEDS ORDERED: Sennosides/Docusate 8.6-50 MG TAB PO ONE (02:15)
[2023-05-28 07:56] LABS: BASO % 0.2 % (0.0-2.0); GRAN # 14.2 K/mm3 (1.4-6.5); GRAN % 87.8 % (42.2-75.2); HEMATOCRIT 39.9 % (42.0-52.0); HEMOGLOBIN 13.7 g/dl (13.5-18.0); LYMPH # 0.6 K/mm3 (1.2-3.4); LYMPH % 3.9 % (20.0-51.0); MEAN CELL VOLUME 88 fl (80.0-100.0); MEAN CORPUSCULAR HEMOGLOBIN 30 pg (27-31); MEAN CORPUSCULAR HGB CONC 34 g/dl (33.0-37.0); MEAN PLATELET VOLUME 9.2 fl (7.4-10.4); MONO # 1.1 K/mm3 (0.1-0.6); RED BLOOD COUNT 4.55 M/mm3 (4.20-5.60); REDCELL DISTRIBUTION WIDTH-CV 13.2 % (11.5-14.5)
[2023-05-28 07:58] LABS: PLATELET COUNT 343 K/mm3 (130-400)
[2023-05-28 08:08] LABS: CALCIUM 8.3 mg/dL (8.4-10.2); CREATININE, serum 0.88 mg/dL (0.72-1.25); POTASSIUM 4.7 mmol/L (3.5-4.5)
[2023-05-28] MEDS ORDERED: Polyethylene Glycol 3350 17 GM PDS PO SCH (09:00)
--- NOTE | 2023-05-28 15:05 | NUR ---
community health outreach worker followed up with patient regarding PT/OT reccomendation for HH vs SNF placement. SW provided Medicare.gov list of HH and SNF agencies in his area to Aidyossi Serna. Patient informs Aide/SW at the door he cannot read. ANETTE called patient's , Tiffani to discuss reccomendations. She passed the phone to son, Roberth who SW discussed with. He reports they would prefer [facility] then [facility] or [facility]. ANETTE discussed patient can stay for up to 21 days covered, then after day 21 there would be a co-pay. Roberth reports "there is no way we can afford the co-pay." SW discussed they can speak with the facility about that if he seemingly needs more than 21 days. Roberth verbalized understanding and informed Tiffani. ANETTE Brice faxed referrals to [facility], [facility], and [facility]. Discharge Plan: SNF
[2023-05-28] MEDS ORDERED: Acetaminophen 325 MG TAB PO PRN (16:00)
--- NOTE | 2023-05-28 22:55 | NUR ---
patient lying in bed alert and oriented x4, family at bedside. pt denies chest pain, hallucinations. report feeling abd discomfort on the left lower quadrant, noted to be firm, bowel sounds present yet hypoactive pt reports passing flatus and having some small loose bowel movements during the day, bladder scanned, 350 ml measured, pt went to bathroom and 345ml remaining, pt up to bathroom frequently with small release each time. shortness of breath experienced during exertion. +1 pitting edema in BLE, small scattered bruising on extremities noted. IV in LW is patent, site is clean dry and intact. pt has no further needs, questions or concerns at this time. fall precautions in place, call light within reach. will continue to monitor.
[2023-05-29] VITALS (12 sets, daily range): BP systolic 107–162; BP diastolic 56–103; PULSE 67–103; TEMP 97.8–98.6
--- NOTE | 2023-05-29 03:04 | NUR ---
RT IN PT ROOM AT 0255. PT FOUND WITH NC OUT OF NOSE SATTING IN HIGH 70S. RT REPLACED NC. PT TOOK OFF NC STATING IT WAS AGITATING HIM SO HE TOOK IT OFF. RT PLACED OM AT 5L NC. PT NOW SATTING 90%. O2 INCREASED TO 6L. BREATHING TX GIVEN.
[2023-05-29 08:41] LABS: BASO % 0.1 % (0.0-2.0); EOS % 0.2 % (0.0-4.0); GRAN # 12.6 K/mm3 (1.4-6.5); GRAN % 85.5 % (42.2-75.2); HEMATOCRIT 40.9 % (42.0-52.0); HEMOGLOBIN 14.1 g/dl (13.5-18.0); LYMPH # 0.6 K/mm3 (1.2-3.4); LYMPH % 4.2 % (20.0-51.0); MEAN CELL VOLUME 88 fl (80.0-100.0); MEAN CORPUSCULAR HEMOGLOBIN 30 pg (27-31); MEAN CORPUSCULAR HGB CONC 35 g/dl (33.0-37.0); MEAN PLATELET VOLUME 8.6 fl (7.4-10.4); MONO # 1.4 K/mm3 (0.1-0.6); MONO % 9.2 % (1.7-9.3); PLATELET COUNT 368 K/mm3 (130-400); RED BLOOD COUNT 4.67 M/mm3 (4.20-5.60); REDCELL DISTRIBUTION WIDTH-CV 13.2 % (11.5-14.5)
--- NOTE | 2023-05-29 08:50 | NUR ---
patient alert self and place. states no seeing hallucinations this morning when nurse asked.patient had reported hallucinations yesturday during shift. patient is on 5l/nc. denies pain at this time. call light within reach. bed alarm on.
[2023-05-29 08:58] LABS: CALCIUM 8.6 mg/dL (8.4-10.2); CREATININE, serum 0.92 mg/dL (0.72-1.25); POTASSIUM 4.8 mmol/L (3.5-4.5)
--- NOTE | 2023-05-29 10:19 | NUR ---
ANETTE Student faxed clinical updates to [facility] (fax#[phone]). ANETTE student called [facility] to check on status of SNF referral. ANETTE Student had to leave voicemail.
--- NOTE | 2023-05-29 11:45 | NUR ---
SW Student faxed clinical updates to [facility] (fax#[phone]).
[2023-05-29] MEDS ORDERED: Sennosides/Docusate 8.6-50 MG TAB PO SCH (13:00)
[2023-05-29] MEDS ORDERED: Sodium Polystyrene Sulf Susp 15 GM/60 ML BOTTLE PO ONE (13:15)
[2023-05-29] MEDS ORDERED: Sodium Zirconium Cyclosilicate for Oral Susp 10 GM PACKET PO ONE (13:15)
--- NOTE | 2023-05-29 13:55 | NUR ---
PATIENT HAD SOME AFIB RHYTHMS IN EKG PER CRITICAL CARE SWITCHER. PHYSICIAN NOTIFIED AND EKG ORDERED.
[2023-05-29] MEDS ORDERED: Magnes Hydrox (MOM) 80 MG/ML 30 ML CUP PO ONE (17:45)
--- NOTE | 2023-05-29 23:54 | NUR ---
patient lying in bed alert and oriented x3 with occasional confusion/forgetfullness. pt denies chest pain and shortness of breath, report abd cramping rated 7/10, tylenol given per request. abd firm, pt passing flatus and having small amounts of stool. BLE +1 pitting edema, scattered general bruising on extremities noted. pt has no further needs, questions or concerns at this time. fall precautions in place, call light within reach. will continue to monitor.
[2023-05-30] VITALS (13 sets, daily range): BP systolic 134–162; BP diastolic 76–96; PULSE 88–110; TEMP 97.7–98.2
[2023-05-30 07:05] LABS: POTASSIUM 4.9 mmol/L (3.5-4.5)
[2023-05-30 07:13] LABS: BASO % 0.1 % (0.0-2.0); EOS % 0.1 % (0.0-4.0); GRAN # 11.1 K/mm3 (1.4-6.5); GRAN % 82.5 % (42.2-75.2); HEMATOCRIT 44.1 % (42.0-52.0); LYMPH # 0.8 K/mm3 (1.2-3.4); LYMPH % 5.9 % (20.0-51.0); MEAN CELL VOLUME 88 fl (80.0-100.0); MEAN CORPUSCULAR HEMOGLOBIN 30 pg (27-31); MEAN CORPUSCULAR HGB CONC 34 g/dl (33.0-37.0); MEAN PLATELET VOLUME 9.2 fl (7.4-10.4); MONO # 1.4 K/mm3 (0.1-0.6); MONO % 10.5 % (1.7-9.3); PLATELET COUNT 372 K/mm3 (130-400); RED BLOOD COUNT 5.01 M/mm3 (4.20-5.60); REDCELL DISTRIBUTION WIDTH-CV 13.2 % (11.5-14.5)
[2023-05-30 07:27] LABS: CALCIUM 8.7 mg/dL (8.4-10.2); CREATININE, serum 0.84 mg/dL (0.72-1.25)
--- NOTE | 2023-05-30 10:00 | NUR ---
PATIENT WITH SEVERE ABDOMINAL DISCOMFORT. DESPITE MANY ATTEMPTS AND MEDICATIOS HE IS UNBABLE TO HAVE A BOWEL MOVEMENT. PER HOSPITALIST, THIS RN AND ANOTHER RN ATTEMPTED DISIMPACTION , WITH NO SUCCESS. NO STOOL NOTED IN THE RECTAL CANAL ON ATTEMP. PATIENT ALSO WITH COMPLAINTS THAT HE HAS BEEN UNABLE TO VOID. HOSPITALIST INFORMED OF THIS. VORB FOR HAYNES CATHETER INSERTION D/T BLADDER SCAN VOLUME >400CC. PHYSICIAN ORDER KUB. XRAY CALLED AND WILL COME UP FOR XR.
[2023-05-30] MEDS ORDERED: Sodium Polystyrene Sulf Susp 15 GM/60 ML BOTTLE PO ONE (10:15)
[2023-05-30] MEDS ORDERED: Morphine 4 MG/ML VIAL IV ONE (11:00)
--- NOTE | 2023-05-30 11:34 | NUR ---
PATINET HAD MEDIUM SIZED SOFT FORMED BOWEL MOVEMENT. PATIENT STATED PAIN HAS DECREASED.
[2023-05-30] MEDS ORDERED: Ondansetron 4 MG/2 ML VIAL IV PRN (12:00)
--- NOTE | 2023-05-30 12:20 | NUR ---
ASYANET HAVING SMALL AMOUNT OF EMESIS. PATIENT STILL COMPLAINING OF ABDOMINAL PAIN DESPITE HAVING A BOWEL MOVEMENT. PATIENT HAS REFUSED OFFERED PAIN MEDICATION. PATIENT NOW COMPLAINGING OF NAUSEA, PA CALLED FOR ANTIEMETIC. MEDICATION ADMINISTERED ORDERED (SEE EMAR)
--- NOTE | 2023-05-30 13:11 | NUR ---
drive worker attended clinical rounding and was informed patient will likely stay through the weekend. ANETTE followed up with [facility] who reports they can likely accept pt once he is a bit more stable and they have to ensure their facility DrPierre will follow patient while there. ANETTE spoke with Jennifer at [facility] who reports they can accept pt. ANETTE spoke with Miranda at [facility] who reports they can accept, but they want the family to be aware Dr. Hernandez would follow cares while pt was there. ANETTE called son, Roberth to provide an update. Roberth reports [facility] choice is [facility]. He was informed of the facility needing to have their DrPierre follow cares for the time pt is there. Roberth was agreeable to this. Roberth reports he will come visit soon. ANETTE Student Sarah faxed updates to [facility], [facility], and [facility]. Discharge Plan: [facility]
--- NOTE | 2023-05-30 14:11 | NUR ---
PATIENT COMPLAINING OF HIS CATHETER BOTHERING HIM. THIS RN HAS TOLD PATINET MULTIPLE TIMES TO STOP TOUCHING AND TUGGING ON HIS HAYNES CATHETER. EACH TIME PATIENT DENIES DOING SO. EDUATION PROVIDED ON PATIENT ON THE INCREASE OF INFECTION/INFLAMMATION AND DAMAGE THAT CAN COME FROM HIM MESSING WITH THTE CATHETER. PATIENT STILL DENYING AT THIS TIME. CALL LIGHT WITHIN REACH. FALL PRECAUTIONS IN PLACE. FAMILY AT BEDSIDE.
[2023-05-30] MEDS ORDERED: Lidocaine 2% (20 MG/ML) 20 ML UROJET TOP PRN (15:30)
--- NOTE | 2023-05-30 17:41 | NUR ---
HAYNES CATHETER DISCONTINUED. PATIENT TOLERATED WELL.
--- NOTE | 2023-05-30 23:45 | NUR ---
PT DANGLING AT BEDSIDE AT START OF SHIFT. LABORED BREATHING ON 3 LITERS NASAL CANNULA. PT SEEN BY RT. ASSESSED, VSS. COOPERATIVE WITH VERBAL INSTRUCTION. MEDICATED PER EMAR. PERIPHERAL IV TO L WRIST PATENT. DENIES FURTHER NEED. TAKES PILLS WHOLE, DENIES PAIN AT THIS TIME. CALL LIGHT WITHIN REACH.
[2023-05-31] VITALS (11 sets, daily range): BP systolic 100–142; BP diastolic 66–79; PULSE 62–95; TEMP 97.7–98.6
--- NOTE | 2023-05-31 02:08 | NUR ---
PT AT BEDSIDE C/O PAIN ALL OVER CHEST. RATED 9/10, TYLENOL GIVEN. BLADDER SCANNED PT, PT FOUND TO HAVE APPROX 240ML IN BLADDER. REFUSES HAYNES CATHETER AND REFUSED TO STAND TO USE THE URINAL. WILL RE SCAN TO MAKE SURE NO RETENTION.
--- NOTE | 2023-05-31 03:57 | NUR ---
pt was able to void into urinal standing up. voided 200ml of dark yellow clear urine.
[2023-05-31 07:17] LABS: CALCIUM 8.1 mg/dL (8.4-10.2); CREATININE, serum 0.91 mg/dL (0.72-1.25)
--- NOTE | 2023-05-31 08:27 | NUR ---
Patient is eating breakfast, alert and oriented x 3, complains of some tummy ache, took all his pills. Assessment completed. Getting 3L O2 HF NC. Alarm on. Call light within reach.
[2023-05-31] MEDS ORDERED: predniSONE 20 MG TAB PO SCH (09:00)
--- NOTE | 2023-05-31 10:56 | NUR ---
Call received from patient's son, Roberth, saying his father is complaining of pain in his abdomen, constipation. Roberth asks to give the doctor his phone and please call him back to talk about patient's issues. Phone provided to Dr. Alvarado. Pt took medications to help with constipation. Tylenol provided as allowed. Continue monitoring.
[2023-05-31] MEDS ORDERED: Mag/Al Hydrox/Simeth Susp 30 ML CUP PO PRN (11:30)
[2023-05-31] MEDS ORDERED: Iohexol 300 - 100 ML VIAL IV ONE (14:27)
[2023-05-31] MEDS ORDERED: cefTRIAXone 1 G in Water For Injection,Sterile 10 ML IV SCH (16:30)
[2023-05-31] MEDS ORDERED: Sodium Zirconium Cyclosilicate for Oral Susp 10 GM PACKET PO ONE (16:30)
[2023-05-31 17:53] LABS: COLLECTION METHOD CLEAN CATCH
[2023-05-31 17:57] LABS: PH 7.5 (5.0-8.5); URINE APPEARANCE CLEAR (CLEAR/HAZY); URINE BLOOD NEGATIVE (NEGATIVE); URINE COLOR YELLOW (YELLOW); URINE GLUCOSE NEGATIVE (NEGATIVE); URINE KETONE NEGATIVE (NEGATIVE); URINE NITRATE NEGATIVE (NEGATIVE); URINE PROTEIN(semi-quant) NEGATIVE (NEGATIVE); URINE UROBILINOGEN 0.2 E.U/dL (0.2-1.0)
[2023-05-31] MEDS ORDERED: Melatonin 3 MG TAB PO PRN (19:45)
[2023-05-31] MEDS ORDERED: Pantoprazole 40 MG in NS 10 ML IV SCH (21:00)
[2023-05-31] MEDS ORDERED: Cefdinir 300 MG CAP PO ONE (21:15)
[2023-05-31] MEDS ORDERED: traMADol 50 MG TAB PO ONE (21:15)
[2023-06-01] VITALS (14 sets, daily range): BP systolic 113–151; BP diastolic 58–90; PULSE 76–98; TEMP 97.3–98.6
--- NOTE | 2023-06-01 01:42 | NUR ---
PT ALERT AND BASELINE ORIENTED TO SELF. VERY FORGETFUL. SON CALLED A FEW TIMES TO REQUEST THAT WE GIVE MORPHINE FOR HIS SEVERE PAIN HES HAVING, HOWEVER, MORPHINE IS LISTED ON HIS ALLERGIES. PER HIS SONS REPORT IT MAKES HIM OUT OF HIS HEAD AND CONFUSED. NOTIFIED CONSUELO MAURER. ORDERS PENDING FOR PAIN RELIEF WELL AN ALTERNATIVE TO IV ABX, PT NO LONGER HAS IV ACCESS. PT HAS BEEN ON THE CALL LIGHT ALL NIGHT, HE IS UNABLE TO SLEEP DESPITE NOT SLEEPING FOR THREE NIGHTS. PT IS VOIDING OK. ASSESSED, MEDICATED PER EMAR AND PRN FOR PAIN IN ABDOMEN. CALL LIGHT WITHIN REACH, BED ALARM ENGAGED.
[2023-06-01] MEDS ORDERED: traZODone 50 MG TAB PO ONE (02:15)
--- NOTE | 2023-06-01 09:00 | NUR ---
PATIENT MOANING AND CALLING OUT IN PAIN THIS MORNING. STATES HE IS HAVING ABDOMINAL PAIN WITH NO RELIEF, DESPITE RECEIVING PAIN MEDICATION. SHIFT ASSESSMENT COMPLETED. MORNING MEDICATIONS ADMINISTERED. UPDATED PATIENT ON PLAN OF CARE. BED ALARM IN PLACE, CALL LIGHT WITHIN REACH. NO IV ACCESS AT THIS TIME. WILL CONTINUE TO MONITOR.
--- NOTE | 2023-06-01 09:39 | NUR ---
THIS RN RECEIVED A CALL FROM THE CELL TOWER CLIMBER STATING PATIENT APPEARED TO HAVE A 5 SECOND RUN OF V-TACH OR AFIB RVR. THIS RN CHECKED ON PATIENT AND FOUND MULTIPLE TELE LEADS DETATCHED. THIS RN REPLACED LEADS AND INFORMED DR. ROMERO. NO FURTHER INSTRUCTIONS AT THIS TIME.
[2023-06-01] MEDS ORDERED: QUEtiapine 25 MG TAB PO SCH (10:00)
[2023-06-01] MEDS ORDERED: Cefdinir 300 MG CAP PO SCH (10:00)
[2023-06-01] MEDS ORDERED: Polyethylene Glycol 3350 17 GM PDS PO ONE (10:00)
[2023-06-01] MEDS ORDERED: NS 500 ML IV ONE (10:15)
--- NOTE | 2023-06-01 10:32 | NUR ---
INSURANCE CASE MANAGER NURSE, JOSÉ LUIS, INFORMED THIS RN THAT BOTH HER AND THE CHARGE NURSE ATTEMPTED TO START AN IV LAST NIGHT AND WERE UNSUCCESSFUL. THIS RN ATTEMPTED TO START AN IV AND WAS ALSO UNSUCCESSFUL. NOTIFIED DR. ROMERO OF PATIENT HAVING NO IV ACCESS. SHE INSTRUCTED THIS RN TO DISCONTINUE ALL IV MEDICATIONS ORDERED AND HAVE AIVS SEE PATIENT TOMORROW.
--- NOTE | 2023-06-01 11:37 | NUR ---
PATIENT URINATED INTO URINAL AND ONLY HAD 75ML OUT. A BLADDER SCAN WAS COMPLETED AND >588ML RETAINED. DR. ROMERO NOTIFIED AND ORDERS OBTAINED TO PLACE A HAYNES CATHETER. THIS RN PLACED THE HAYNES AND HAD 600ML OUTPUT IMMEDIATELY. PATIENT IS TOLERATING CATHETER WELL AT THIS TIME. WILL CONTINUE TO MONITOR.
--- NOTE | 2023-06-01 18:55 | NUR ---
Bedside shift report received from SLOAN Sabillon. This nurse unable to leave room at this time as patient is continuously setting off bed alarm. Rolling around on bed moaning stating he is having cramping in his abdomen. States he has to have a BM. Assisted up to bathroom at this time-passed gas several times but no BM. Assisted back to bed. Tele reporting S dys. Currently on O2@3L/HFNC. Keeps removing O2 and needs constant reminder to leave on. Sánchez cath with cloudy yellow urine. VS stable. Has no IV access-providers aware-order for PICC placement tomorrow. Plan of care discussed for this shift to include meds/pain control/calling for questions/concerns. Verbalizes understanding. Call light in reach. will monitor.
[2023-06-01] MEDS ORDERED: Sodium Zirconium Cyclosilicate for Oral Susp 10 GM PACKET PO ONE (21:00)
--- NOTE | 2023-06-01 21:10 | NUR ---
Noted to have elvated blood pressure. Taken manually by this nurse-132/[id number]. Will monitor.
--- NOTE | 2023-06-01 23:47 | NUR ---
Patient continues to be very restless-sitting up and standing setting off bed alarm. Is very confused. Sánchez cath with yellow to pink colored output. Does not appear to be in pain but continues to removed O2 cannula. Will continue to monitor.
--- NOTE | 2023-06-01 23:57 | NUR ---
Patient c/o pain in lower abdomen-norco given per dr order.
[2023-06-02] VITALS (8 sets, daily range): BP systolic 118–142; BP diastolic 68–83; PULSE 68–77; TEMP 97.2–98
--- NOTE | 2023-06-02 02:51 | NUR ---
Up to bathroom at this time with one assist/walker. Patient states he thinks he needs to have a BM.
--- NOTE | 2023-06-02 03:33 | NUR ---
Patient has had a very restless night setting off bed alarm mulitiple times. Finally resting with eyes closed. Instructed PCT to wait on 0400 vital signs and let patient rest. Call light in reach. Bed alarm on. WIll monitor.
[2023-06-02 07:47] LABS: BASO % 0.1 % (0.0-2.0); EOS % 0.1 % (0.0-4.0); GRAN # 11.7 K/mm3 (1.4-6.5); GRAN % 83.6 % (42.2-75.2); HEMOGLOBIN 14.7 g/dl (13.5-18.0); LYMPH # 0.7 K/mm3 (1.2-3.4); MEAN CELL VOLUME 84 fl (80.0-100.0); MEAN CORPUSCULAR HEMOGLOBIN 31 pg (27-31); MEAN CORPUSCULAR HGB CONC 37 g/dl (33.0-37.0); MEAN PLATELET VOLUME 8.4 fl (7.4-10.4); MONO # 1.4 K/mm3 (0.1-0.6); MONO % 10.3 % (1.7-9.3); PLATELET COUNT 497 K/mm3 (130-400); RED BLOOD COUNT 4.78 M/mm3 (4.20-5.60)
[2023-06-02 07:53] LABS: CALCIUM 8.1 mg/dL (8.4-10.2); CREATININE, serum 0.8 mg/dL (0.72-1.25); MAGNESIUM 2.5 mg/dL (1.6-2.6); POTASSIUM 4.5 mmol/L (3.5-4.5)
[2023-06-02] MEDS ORDERED: Polyethylene Glycol 3350 17 GM PDS PO SCH (09:00)
--- NOTE | 2023-06-02 10:14 | NUR ---
Patient alert and oriented to self, location, and situation. Complains of burning stomach pain this morning, morning medications administered including pepcid. Patient ate most of breakfast and drank all of milk and orange juice after complaining of pain. Tolerating activity well, ambulated x1 assistance with gaitbelt and walker around room to recliner. Sánchez catheter intact and draining yellow/clear urine. Patient states no one and not anything can help him, states staff cannot do anything right and wants someone to stay with him in his room. Patient groans and moans loudly until staff returns. Set up assistance provided during breakfast, patient able to feed self but states he cannot. Visualized patient lifting utensils and feeding self egg and potatoes. Patient required encouragement to take morning medications due to initial refusal, but agreed when education provided on pepcid being able to help burning in stomach. Fall precautions in place, call light within reach, all needs met at this time.
[2023-06-02] MEDS ORDERED: Pantoprazole 40 MG in NS 10 ML IV SCH (12:40)
[2023-06-02] MEDS ORDERED: NS 1,000 ML IV ONE (12:45)
--- NOTE | 2023-06-02 13:57 | NUR ---
chisel worker faxed updates to [facility]. SW attended clincial rounding and heard pt state a lot of complaints and was informed more testing will occur. [facility]
[2023-06-02] MEDS ORDERED: Iohexol 300 - 100 ML VIAL IV ONE (14:14)
[2023-06-02] MEDS ORDERED: NS 100 ML IV SCH (14:16)
--- NOTE | 2023-06-02 15:45 | NUR ---
Discussed GI consult with patient's son Ed. Son updated on patient's day and recent medication changes, discussed plan of care. Son verbalized understanding. PRN Tylenol administered to patient for pain. Patient sleeping at this time with bed alarm on and call light within reach.
[2023-06-02] MEDS ORDERED: Ondansetron 4 MG/2 ML VIAL IV PRN (16:15)
--- NOTE | 2023-06-02 20:49 | NUR ---
Patient c/o pain to right upper arm-PICC area. Rewrapped at this time with simon bandage. States already feels better. Report givn to primary nurse, SLOAN Roth.
--- NOTE | 2023-06-02 21:00 | NUR ---
UPON SHIFT ASSESSMENT, TIFFANIE WAS IN BED NAPPING. DAY SHIFT REPORT STATES THAT GI SYMPTOMS PERSIST AND EGD IS SCHEDULED FOR 06/03/23, HOWEVER, CONSENT CANNOT BE SIGNED UNTIL SON ARRIVES PER PATIENT REQUEST. VS ARE WNL AND NS IS RUNNING IN PURPLE PICC LINE (NO CAP NOTED AND ONE WAS INSTALLED) 125ML/HR. TELE IS NS PACED. LUNG SOUNDS AUSCULTATE COARSE CRACKLES IN UPPER LOBES-PATIENT ON 3L NASAL CANULA. SEE SHIFT ASSESSMENT. CALL LIGHT WITHIN REACH
[2023-06-03] VITALS (17 sets, daily range): BP systolic 102–138; BP diastolic 43–95; PULSE 64–93; TEMP 97.6–98.3
--- NOTE | 2023-06-03 | NUR ---
PATIENT C/O BURNING [id number]. REQUESTED ICE CREAM. VS ARE WNL, TELE IS PACED. SHERBRET GIVEN.
--- NOTE | 2023-06-03 01:00 | NUR ---
PATIENT UTILIZED CALL LIGHT C/O OF UPPER GASTRIC PAIN AND RESTLESSNESS. PANCREAZE, MAALOX AND MELATONIN GIVEN. BOWEL SIGNS PRESENT AND ABDOMEN SOFT AND PALPABLE. VS WNL
--- NOTE | 2023-06-03 03:38 | NUR ---
ENTERED PATIENT'S ROOM. TIFFANIE IS SLEEPING SOUNDLY ON RT SIDE. NO VISUAL SIGNS OF DISTRESS, VS ARE WNL.
[2023-06-03] MEDS ORDERED: LR 1,000 ML IV SCH (05:00)
[2023-06-03 07:09] LABS: BASO % 0.2 % (0.0-2.0); EOS % 0.1 % (0.0-4.0); GRAN # 11.4 K/mm3 (1.4-6.5); GRAN % 86.4 % (42.2-75.2); HEMATOCRIT 38.9 % (42.0-52.0); HEMOGLOBIN 13.9 g/dl (13.5-18.0); LYMPH # 0.5 K/mm3 (1.2-3.4); LYMPH % 3.4 % (20.0-51.0); MEAN CELL VOLUME 85 fl (80.0-100.0); MEAN CORPUSCULAR HEMOGLOBIN 30 pg (27-31); MEAN CORPUSCULAR HGB CONC 36 g/dl (33.0-37.0); MEAN PLATELET VOLUME 8.3 fl (7.4-10.4); MONO # 1.2 K/mm3 (0.1-0.6); PLATELET COUNT 404 K/mm3 (130-400); REDCELL DISTRIBUTION WIDTH-CV 13.1 % (11.5-14.5)
[2023-06-03 07:23] LABS: CALCIUM 7.9 mg/dL (8.4-10.2); CREATININE, serum 0.73 mg/dL (0.72-1.25); POTASSIUM 4.3 mmol/L (3.5-4.5)
[2023-06-03] MEDS ORDERED: Magnes Hydrox (MOM) 80 MG/ML 30 ML CUP PO SCH (09:00)
[2023-06-03] MEDS ORDERED: fentaNYL 50 MCG/ML 2 ML VIAL IV ONE (11:30)
--- NOTE | 2023-06-03 11:36 | NUR ---
Social work student Annette faxed updates to [facility].
[2023-06-03] MEDS ORDERED: Lidocaine PF 2% (20 MG/ML) 5 ML VIAL ONE (12:06)
--- NOTE | 2023-06-03 14:33 | NUR ---
Patient alert and oriented to self, situation, and location. Noted to be forgetful and had to be reminded of EGD this morning. Complained of 10/10 pain to abdomen this morning while NPO, one time order obtained for IV fentanyl. Patient stable following EGD, still noted to be uncomfortable. Tolerating water well. Required O2 to be increased to 4L due to SpO2 decreasing to 86% on 3L. Activity still x1 with gaitbelt and walker. Sánchez intact and draining yellow/clear urine. Family at bedside. Fall precautions in place.
[2023-06-03] MEDS ORDERED: Fluconazole 400 MG/200 ML IV SOLN IV ONE (15:30)
--- NOTE | 2023-06-03 18:33 | NUR ---
Patient remains stable. VS following procedure stable. Has been resting in bed with eyes closed. PRN Tylenol administered for pain. Discussed advancing diet to clear liquids with Dr. Bynum as well as undigested stomach contents revealed during EGD. Informed provider that patient's last full meal was yesterday morning due to not tolerating lunch well, and not wanting dinner before NPO status this morning. Diet currently clear liquids. IV Fluconazole administered. No BM noted today. Call light within reach, fall precautions in place. All needs met at this time.
--- NOTE | 2023-06-03 20:30 | NUR ---
UPON SHIFT ASSESSMENT, TIFFANIE WAS AWAKE IN BED AND AXO X3. HE C/O OF SORE THROAT R/T RECENT EGD. ABDOMEN IS DISTENDED AND SOFT. TIFFANIE ALSO COMPLAINS OF EPIGASTRIC PAIN. BOWEL SOUNDS ARE PRESENT, HOWEVER, HYPOACTIVE-SEE ASSESSMENT. VS ARE WNL AND TWLW IS NS PACED. ADMINISTERED TYLENOL FOR PAIN AND WILL CONTINUE TO ASSESS. CALL LIGHT WITHIN REACH, BED ALARM ON.
--- NOTE | 2023-06-03 22:26 | NUR ---
PATIENT INSISTS ON NORCO FOR PAIN RELIEF. PATIENT EDUCATION PROVIDED ON CONSTIPATION.
[2023-06-03] MEDS ORDERED: NS 1,000 ML IV SCH (23:30)
--- NOTE | 2023-06-03 23:30 | NUR ---
CALL PLACED TO HOSPITALISTTIFFANIE'S BMP THIS MORNING SHOWS TRENDING HYPONATREMIA-123. TORB FOR NS 75ML/HR AND FREE WATER RESTRICTION GIVEN.
[2023-06-04] VITALS (12 sets, daily range): BP systolic 120–154; BP diastolic 68–90; PULSE 68–98; TEMP 97.4–98.2
--- NOTE | 2023-06-04 03:00 | NUR ---
ROUNDED ON PATIENT-SLEEPING PEACEFULLY.
--- NOTE | 2023-06-04 03:03 | NUR ---
CATHETER CARE PROVIDED. STAT LOCK BROKEN, NEW ONE PLACED.
[2023-06-04 08:05] LABS: BASO % 0.1 % (0.0-2.0); EOS % 0.1 % (0.0-4.0); GRAN # 10.6 K/mm3 (1.4-6.5); GRAN % 86.5 % (42.2-75.2); HEMATOCRIT 38.7 % (42.0-52.0); HEMOGLOBIN 13.9 g/dl (13.5-18.0); LYMPH # 0.4 K/mm3 (1.2-3.4); MEAN CELL VOLUME 84 fl (80.0-100.0); MEAN CORPUSCULAR HEMOGLOBIN 30 pg (27-31); MEAN CORPUSCULAR HGB CONC 36 g/dl (33.0-37.0); MEAN PLATELET VOLUME 8.4 fl (7.4-10.4); MONO # 1.2 K/mm3 (0.1-0.6); MONO % 9.4 % (1.7-9.3); PLATELET COUNT 401 K/mm3 (130-400); REDCELL DISTRIBUTION WIDTH-CV 13.2 % (11.5-14.5)
[2023-06-04 08:15] LABS: CALCIUM 7.7 mg/dL (8.4-10.2); CREATININE, serum 0.69 mg/dL (0.72-1.25); POTASSIUM 4.7 mmol/L (3.5-4.5)
--- NOTE | 2023-06-04 08:24 | NUR ---
PT RESTING ON SIDE OF BED WITH OBVIOUS DISCOMFORT. PT COMPLAINING OF BURNING PAIN IN ABDOMEN AND PENIS FROM CATHETER. PT HAD LOSE INCONTINENT BM THIS AM. WEAK GAIT TO BATHROOM. PT A/O X4, WILL CONTINUE TO MONITOR.
[2023-06-04] MEDS ORDERED: Lidocaine 2% Viscous 15 ML UNIT DOSE MM PRN (12:00)
[2023-06-04] MEDS ORDERED: Fluconazole 200 MG/100 ML IV SOLN IV SCH (13:00)
--- NOTE | 2023-06-04 15:44 | NUR ---
platform worker attended clinical rounding and was informed pt can discharge today. ANETTE called [facility] and spoke with Cassie who reports they were not expecting patient today. ANETTE reminds her that this SW and her spoke yesterday and she was informed pt will likely discharge today. Cassie inquired about transportation and if the hospital provides this. ANETTE reminds her she spoke with ANETTE Cotter yesterday who advised too, that [facility] usually provides transportation. Cassie reports she can set up public transportation for pt, but this was difficult to arrange the last time they did so. Cassie suggested the son provide transport. ANETTE stated she will have to discuss to see. Cassie then reports they are unable to accept pt today and their left around 12pm to see patient. ANETTE advised she would look into seeing if another facility could accept today. Cassie advised they could accept pt tomorrow. ANETTE faxed updates. ANETTE spoke with Noah at [facility] and provided updates. She reports their team is still reviewing and it would likely be tomorrow. ANETTE provided email updates to Miranda at [facility] who declines patient due to clinical concerns. ANETTE spoke with son, Roberth who now reports his first choice would be [facility] or even [facility] as he would like pt to stay in [place] in case they have to go to the hospital again and they do not want to go to [place]. ANETTE inquired if he would like pt to go from SNF to LTC or SNF to home. Roberth was unsure and reported concerns from a financial aspect about Medicaid taking most of pt's income for pt to stay at LTC. ANETTE provided she can have [facility] reach out to further discuss how much Medicaid takes out in total with a spouse and pt needing LTC. Roberth was agreeable to this. ANETTE spoke with Noah at [facility] who reports Roberth was not decided on the discharge plan after SNF, but he was made aware of the costs and concerned about finances. ANETTE informed SLOAN Lam and Dr. Moncada that patient will discharge tomorrow. [facility]
--- NOTE | 2023-06-04 19:41 | NUR ---
RECEIVED CHANGE OF SHIFT REPORT FROM DAY SHIFT NURSE. PATIENT RESTING IN BED, DID NOT WAKE DURING NURSING ROUNDS. CALL LIGHT IN REACH.
[2023-06-04] MEDS ORDERED: Famotidine 20 MG TAB PO SCH (21:00)
[2023-06-05] VITALS (7 sets, daily range): BP systolic 109–152; BP diastolic 78–86; PULSE 84–88; TEMP 97.7–98.4
--- NOTE | 2023-06-05 02:07 | NUR ---
Complains of "ulcer pain" then rubbing on abd, see MAR for med given. Patient insistant to dangle at side of bed due to discomfort.
--- NOTE | 2023-06-05 04:00 | NUR ---
BLADDER SCAN DONE OF 683 ML, RESULT CALLED TO ONCALL PROVIDER, ORDERS GIVEN TO STRAIGHT CATH X1 AND TO PVR WITH EACH VOID AND CALL IF >500ML PVR.
--- NOTE | 2023-06-05 05:22 | NUR ---
Patient unable to urinate. Bladder scan showed residual of greater than 600 mls in bladder. Primary nurse called and spoke with MARTHA Richards. New order to straight cath, and check post void residuals with bladder scanner. This nurse performed straight cath on patient after explaining procedure. Patient was agreeable. 700 mls of urine emptied. Tolerated well. Voices no questions, needs, or concerns at this time. In bed with call light within reach. High fall risk precautions in place. Bed alarm on.
--- NOTE | 2023-06-05 07:30 | NUR ---
Change of shift report given to day shift nurseEdyta. Patient resting in bed, did not wake during report. Contact isolation continues. Exit alarm on, call light in reach.
[2023-06-05] MEDS ORDERED: SEROQUEL 2525 MG/TAB PO (10:23)
[2023-06-05] MEDS ORDERED: LIDOCAINE HC20 MG/M2 MM (10:27)
[2023-06-05] MEDS ORDERED: SENEXON-S 50-81 EACH PO (10:28)
[2023-06-05] MEDS ORDERED: PEPCID 20MG TAB20 MG PO (10:29)
[2023-06-05] MEDS ORDERED: Lidocaine 2% Viscous 15 ML UNIT DOSE MM SCH (11:00)
--- NOTE | 2023-06-05 11:00 | NUR ---
PT SITTING ON SIDE OF BED UPON ENTERING. ASSESSMENT DONE, MEDS GIVEN PER ORDER. PT REPORTS ABDOMINAL PAIN AND GIVEN PRN, PT STATES "ITS BECAUSE OF THE ULCERS". PICC TO RIGHT UPPER ARM WRAPEPD WITH ARIANA WRAP ADN DUAL PORTS FLUSH WITH BLOOD RETURN. PT DENIES NEEDS AT THIS TIME. BED IN LOWEST POSITION, CALL LIGHT IN REACH, BED ALARM ON
--- NOTE | 2023-06-05 11:43 | NUR ---
PT LAYING IN BED AND 88% ON ROOM AIR. PT EDUCATED ABOUT THIS AND REFUSES OXYGEN USE AT THIS TIME
--- NOTE | 2023-06-05 11:46 | NUR ---
aniline press worker attended clinical rounding and was informed patient can discharge today. ANETTE called and left a voicemail, and emailed Noah at [facility] to obtain an answer if they can accept. ANETTE recieved no feedback. ANETTE spoke with Cassie at [facility] who can accept pt today. They advised they can transport pt at 12:30pm. ANETTE faxed discharge orders. ANETTE informed RN and Dr. Moncada, and wrote it on the whiteboard. ANETTE spoke with son, Roberth who accepts [facility] as [facility] did not respond and [facility] declined. Roberth reports patient wants to be in [place] anyways. ANETTE attempted to complete IM from Medicare over the phone, but Roberth declined to do so and states he will be in around 11:30am. ANETTE notes patient's son has not arrived to complete IM from Medicare. Discharge Plan: [facility] 12:30pm
[2023-06-05] MEDS ORDERED: Fluconazole 100 MG TAB PO SCH (12:00)
--- NOTE | 2023-06-05 12:21 | NUR ---
ornamental metal worker helper met with sonRoberth and , Tiffani in person to go over IM from Medicare. Tiffani verbalized understanding and signed for pt. Copy given and original in chart. [facility] 12:30[facility]
--- NOTE | 2023-06-05 13:30 | NUR ---
PTS IS ASKING THIS NURSE TO ASSIST HER TO BATHROOM, PERSONAL GAIT BELT ON . RETURN TO SERVICE INSPECTOR CALLED AND TOLD THIS NURSE TO CALL [employer] PUNCHER TO REACH OUT TO FAMILY MEMBER TO ASSIST WITH TOILETING DUE TO NOT BEING A PATIENT. CHAIRMAN CEO OKAY WITH STAFF ASSISTING TO BATHROOM.
--- NOTE | 2023-06-05 13:47 | NUR ---
PT DRESSED IN PERSONAL CLOTHES. PICC REMEOVED BY AIVS, PT FLAT FOR 30MINS AND TOLERATED WELL. PT TRANSFERRED TO WHEELCHAIR [facility] PT DENIES NEEDS
--- NOTE | 2023-06-05 14:51 | NUR ---
REPORT GIVEN TO [facility] NURSE
== END 2023-06-05 14:01 | DRG 871 ==
LOC: COL.ER 11:36 → ICU 13:00 → MEDICAL 13:00
PROVIDERS: Internal Medicine; Internal Medicine Gastroenterology; Nurse Practitioner Family; Physician Assistant; ADMIT Hospitalist
PROC: 02H633Z Insertion of Infusion Device into Right Atrium, Percutaneous Approach (ICD-10-PCS; 2023-06-02)
PROC: 0DB68ZX Excision of Stomach, Via Natural or Artificial Opening Endoscopic, Diagnostic (ICD-10-PCS; 2023-06-03)
PROC: 0DB38ZX Excision of Lower Esophagus, Via Natural or Artificial Opening Endoscopic, Diagnostic (ICD-10-PCS; 2023-06-03)
PROC: 0DB58ZX Excision of Esophagus, Via Natural or Artificial Opening Endoscopic, Diagnostic (ICD-10-PCS; principal; 2023-06-03 12:30)
DX: A41.9 Sepsis, unspecified organism (principal); J18.9 Pneumonia, unspecified organism; J96.01 Acute respiratory failure with hypoxia; J44.0 Chronic obstructive pulmonary disease with (acute) lower respiratory infection; J44.1 Chronic obstructive pulmonary disease with (acute) exacerbation; E87.1 Hypo-osmolality and hyponatremia; K86.2 Cyst of pancreas; Z66 Do not resuscitate; B37.81 Candidal esophagitis; K22.10 Ulcer of esophagus without bleeding; I50.22 Chronic systolic (congestive) heart failure; E78.5 Hyperlipidemia, unspecified; I25.10 Atherosclerotic heart disease of native coronary artery without angina pectoris; Z20.822 Contact with and (suspected) exposure to COVID-19; K76.89 Other specified diseases of liver; K57.30 Diverticulosis of large intestine without perforation or abscess without bleeding; J44.9 Chronic obstructive pulmonary disease, unspecified; K21.9 Gastro-esophageal reflux disease without esophagitis; H40.9 Unspecified glaucoma; H26.9 Unspecified cataract; R65.20 Severe sepsis without septic shock; H35.30 Unspecified macular degeneration; I72.4 Aneurysm of artery of lower extremity; K44.9 Diaphragmatic hernia without obstruction or gangrene; I11.0 Hypertensive heart disease with heart failure; N40.1 Benign prostatic hyperplasia with lower urinary tract symptoms; R33.8 Other retention of urine; I35.1 Nonrheumatic aortic (valve) insufficiency; K58.1 Irritable bowel syndrome with constipation; E87.5 Hyperkalemia; Z88.6 Allergy status to analgesic agent; Z88.1 Allergy status to other antibiotic agents; Z88.5 Allergy status to narcotic agent; Z88.8 Allergy status to other drugs, medicaments and biological substances; Z91.018 Allergy to other foods; Z87.891 Personal history of nicotine dependence; Z90.49 Acquired absence of other specified parts of digestive tract; Z95.1 Presence of aortocoronary bypass graft; Z79.899 Other long term (current) drug therapy; Z79.82 Long term (current) use of aspirin; I25.2 Old myocardial infarction
CPT/HCPCS: A9270; C1751; C9113; J0696; J1100; J1450; J1650; J2405; J2704; J3010; J7030; J7120; J7512; Q9967